=== PATIENT | male | born 1940 | race Caucasian/White ===

== ENCOUNTER 2018-10-18 18:40 | Inpatient (IN) | payer MEDICARE ==
[2018-10-18] MEDS ORDERED: Azithromycin 250 MG TAB ONE (20:17)
--- NOTE | 2018-10-18 20:30 | PDOC.FPRHP ---
- History of Present Illness Chief Complaint: SOB History of Present Illness: This is a 78 yo male with a PMH of COPD, HTN, DM2, CAD s/p stent, AAA, and BPH who presents to the ed with a cc of worsening SOB. He reports that his symptoms started 2 days ago. He reports sob with exertion and increased sputum production , with a change in consistency. He improves with rest. He denies chest pain. ED Course: Azithromycin 500 mg - Allergies/Adverse Reactions Allergies Allergy/AdvReac Type Severity Reaction Status Date / Time No Known Drug Allergies Allergy Verified 10/18/18 22:20 - Home Medications Medication Instructions Recorded Confirmed Type RX: Cilostazol 100 mg PO BID-AC 05/08/14 10/18/18 History RX: Clopidogrel Bisulfate [Plavix] 75 mg PO DAILY 05/08/14 10/18/18 History RX: Glucosamine Sulfate 750 mg PO DAILY 05/08/14 10/18/18 History RX: Ranitidine HCl 150 mg PO BID 05/08/14 10/18/18 History RX: Selenium 25 mcg PO DAILY 05/08/14 10/18/18 History RX: Sertraline HCl 100 mg PO DAILY 05/08/14 10/18/18 History RX: Valsartan/Hydrochlorothiazide 1 tablet PO HS 05/08/14 10/18/18 History [Valsartan-Hctz 320-12.5 mg Tab] Albuterol Sulfate [Ventolin HFA] 2 puff INH Q4HR PRN 10/18/18 10/18/18 History Aspirin [Aspirin Chewable] 162 mg PO HS 10/18/18 10/18/18 History Fluticasone/Salmeterol [Advair HFA 2 inh IH BID 10/18/18 10/18/18 History 230/21 Inhaler] Metoprolol Succinate [Toprol Xl] 25 mg PO BID 10/18/18 10/18/18 History Multivitamin [Daily Multiple 1 each PO DAILY 10/18/18 10/18/18 History Vitamin] [place]-3 Fatty Acids/Fish Oil [Fish 1 cap PO DAILY 10/18/18 10/18/18 History Oil 1,000 mg Capsule] RX: Allopurinol 150 mg PO HS 10/18/18 10/18/18 History RX: Amlodipine [Norvasc] 5 mg PO DAILY 10/18/18 10/18/18 History RX: Atorvastatin Calcium 10 mg PO HS 10/18/18 10/18/18 History RX: Levemir Flexpen [Levemir 21 units SC BID 10/18/18 10/18/18 History FlexPen] metFORMIN HCl 500 mg PO BID 10/18/18 10/18/18 History - History PMHx: COPD, HTN, DM2, CAD, AAA stable, BPH, obesity PSHx: cardiac stent, right cartid enarterectomy FHx: none contributory Social:40 pack year history, drinks socially denies drugs - Review of Systems General: reports: fever/chills. denies: weight/appetite/sleep changes, fatigue Eyes: denies: eye pain, vision changes Respiratory: reports: cough, congestion, shortness of breath, exercise intolerance Cardiovascular: denies: chest pain, palpitation Gastrointestinal: reports: nausea. denies: vomiting, diarrhea, constipation Skin: denies: rashes, lesions Musculoskeletal: denies: pain, tenderness Neurological: denies: numbness, syncope Psychological: denies: anxiety, depression - Vital signs BP: 177/85 HR: 94 RR: 18 Tmax: 99.0 Pox: 97% on RA Wt: 93 kg - Physical Exam Constitutional: NAD, awake, alert and oriented, well developed HEENT: normocephalic and atraumatic, MMM Neck: FROM, no JVD Chest: no-tender to palpation Heart: RRR, normal S1/S2, no murmurs/rubs/gallops Lungs: good air movement, other (mild end expiratory wheezing) Abdomen: soft, non-tender, bowel sounds present, no masses/distention Musculoskeletal: normal structure, ROM grossly normal Neurological: no focal deficit Heme/Lymphatic: no unusual bruising or bleeding Psychiatric: normal mood and affect, good judgment and insight FMR H&P: Results - Labs Lab results: Lactic Acid 2.4 mmol/L (0.5-2.2) H 10/18/18 19:53 cbc wbc 7.5 hgb 12.6 hct 37.9 mcv 98.1 plt 292 CMP na 141 k4.1 cl 104 bicarb 28 bun 31 cr 1.5 glucose 161 albumin 3.3 bili 0.5 AST 27 ALT 15 Trop neg x1 - Radiology Interpretation CT scan - chest Status: report reviewed by me (nodular mass 8.1cm x 7cm x 5.6cm, left pleural effusion, occulsion of left lower lobe bronchus) FMR H&P: A/P - Problem List (1) COPD exacerbation Current Visit: Yes Status: Acute Code(s): J44.1 - CHRONIC OBSTRUCTIVE PULMONARY DISEASE W (ACUTE) EXACERBATION (2) HTN (hypertension) Current Visit: Yes Status: Acute Code(s): I10 - ESSENTIAL (PRIMARY) HYPERTENSION (3) Type 2 diabetes mellitus Current Visit: Yes Status: Acute (4) History of heart artery stent Current Visit: Yes Status: Acute Code(s): Z95.5 - PRESENCE OF CORONARY ANGIOPLASTY IMPLANT AND GRAFT (5) CAD (coronary artery disease) Current Visit: Yes Status: Acute Code(s): I25.10 - ATHSCL HEART DISEASE OF [place] CORONARY ARTERY W/O ANG PCTRS (6) AAA (abdominal aortic aneurysm) Current Visit: Yes Status: Acute Code(s): I71.4 - ABDOMINAL AORTIC ANEURYSM , WITHOUT RUPTURE (7) BPH (benign prostatic hyperplasia) Current Visit: Yes Status: Acute Code(s): N40.0 - BENIGN PROSTATIC HYPERPLASIA WITHOUT LOWER URINRY TRACT SYMP - Plan This is a 78 yo male with a PMH of COPD, HTN, DM2, CAD s/p stent, AAA, and BPH COPD exacerbation -Admit to tele -Azithromycin in ED, changing to doxy due to potential interaction -Start steroids -Scheduled duonebs -Pending procal Pulmonary nodule -CT chest shows nodular mass 8.1cm x 7cm x 5.6cm, left pleural effusion, occulsion of left lower lobe bronchus -Consult pulmonology in the morning HTN -continue home meds DM2 -Continue home levemir, achs accuchecks, SSI CAD -Continue home meds AAA BPH -Consider adding terazosin if BP remains elevated Code: full Prophylaxis: lovenox Family: none at bedside Disposition: DC in 2-3 days FMR H&P: Upper Level - Pertinent history 78M presents for shortness of breath. This has been worsening over 2 days. Never had issues like this before. It is worst with exertion, improved with rest. Specifically denies fever, cough, sputum production, PND, orthopnea, LE edema. Social history pertinent for 40 pack year history. He has no respiratory diagnosis in past except COPD. He has no recent sick contact or long distance travel. - Pertinent findings Gen: Alert, grossly oriented HEENT: Normocephalic, moist mucosal membrane, white sclera, fair dentition Resp: CTA bilaterally, but diminished breath sound CV: RRR with no apparent m/g/r GI: Normoactive bowel, not tender to palpation, no masses palpated MSK: No edema noted in LEs Neuro: No focal deficit seen, patient converses appropriately - Plan Date/Time: 10/18/182027 I, [Stephen Sandoval], have evaluated this patient and agree with findings/plan as outlined by internal affairs commander resident. Pertinent changes/additions are listed here. 1. Lung Masses - Consider mets as possibility. At least 40 pack year history. Unlikely infection as vitals and wbc wnl. - Consult Pulm in morning - Treat symptomatically at this time to relieve dyspnea 2. COPD exacerbation - Smoking history. - Will treat with doxy, steroid, neb, O2. 3. DM2 - Stable chronic issue. - Will resume home insulin. Will hold metformin in mean time due to CT scan. Start sliding scale insulin to cover 4. HTN: - Mildly HTN at this time, but without emergency symptoms - Resume home medication 5. GERD - Stable chronic issue - Resume home medication 6. Depression - Stable chronic issue - Continue home med - Consider spiritual care consult 7. Gout - Stable Chronic issue - Continue home med
[2018-10-18 20:33] LABS: Bilirubin Negative (Negative); Blood, Urine Negative (Negative); Clarity CLEAR (Clear); Glucose, Urine (Dipstick) Negative (Negative); Leukocyte Negative (Negative); Nitrite Negative (Negative); Protein, Urine (Dipstick) Trace mg/dL (Neg-Trace)
[2018-10-18 20:34] LABS: Specific Gravity, Urine 1.053 (1.002-1.036)
[2018-10-18 21:00] LABS: Troponin I Less than 0.010 ng/mL (< 0.028)
[2018-10-18] MEDS ORDERED: Acetaminophen 325 MG TAB PO PRN (21:38)
[2018-10-18] MEDS ORDERED: Ondansetron PF 4 MG/2 ML Vial IVP PRN (21:38)
[2018-10-18] MEDS ORDERED: Ondansetron ODT 4 MG TAB SL PRN (21:38)
[2018-10-18] MEDS ORDERED: HYDROcodone/Acetaminophen 5/325 mg Tablet PO PRN ×2 (21:38)
[2018-10-18] MEDS ORDERED: PROVENTIL INHALER 6.7 G (200 INHALATIONS) INH PRN (22:24)
[2018-10-18] MEDS ORDERED: Dextrose 5% in Water 1,000 ML IV PRN (22:27)
[2018-10-18] MEDS ORDERED: Dextrose 50% Abboject 50 ML SYRINGE SLOW IVP PRN (22:27)
[2018-10-18] MEDS ORDERED: Ondansetron ODT 4 MG TAB PO PRN (22:27)
[2018-10-18] MEDS ORDERED: HumaLOG 300 UNITS/3 ML VIAL SC PRN ×2 (22:27)
[2018-10-18 22:57] VITALS: BMI 29.1
[2018-10-18] MEDS ORDERED: Doxycycline 100 MG CAP PO SCH (23:00)
[2018-10-18 23:31] LABS: Troponin I Less than 0.010 ng/mL (< 0.028)
[2018-10-18 23:54] LABS: Lactic Acid 3.1 mmol/L (0.5-2.2)
[2018-10-19 05:13] LABS: #Monocytes 0.8 thou/uL (0.11-0.59); #Neutrophils 8.6 thou/uL (1.40-6.50); %Basophils 0.4 % (0.0-1.0); %Eosinophils 0.1 % (0.0-10.0); %Lymphocytes 9.9 % (21.0-51.0); %Monocytes 7.6 % (0.0-10.0); Hemoglobin 11.9 g/dL (14.0-18.0); Mean Corpuscular HGB CONC 32.7 g/dL (32.0-36.0); Mean Platelet Volume 7.4 fL (7.4-10.4); Platelet Count 320 thou/uL (130-400); Red Blood Cell (RBC) Count 3.61 mill/uL (4.70-6.10); White Blood Cell (WBC) Count 10.5 thou/uL (4.8-10.8)
[2018-10-19 05:39] LABS: Anion Gap 14 mmol/L (10-20); BUN (Urea Nitrogen) 38 mg/dL (8.4-25.7); Calc. Creatinine Clearance 53 mL/min (70-130); Calcium 9.6 mg/dL (7.8-10.44); Carbon Dioxide 27 mmol/L (23-31); Chloride 105 mmol/L (98-107); Estimated GFR-MDRD 44; Glucose 123 mg/dL (83-110); Potassium 4.2 mmol/L (3.5-5.1); Sodium 142 mmol/L (136-145)
[2018-10-19] MEDS: Mometasone/Formoterol 120 PUFF INHALER INH SCH ×2 (07:15→19:19)
--- NOTE | 2018-10-19 07:49 | PDOC.FM ---
- Subjective Subjective: Pt feeling well this AM. continued SOB, no cough, no wheezing. no complaints at this time. no fever/chills, no nausea/vomiting, no hemoptysis - Objective MAR Reviewed: Yes Vital Signs & Weight: Vital Signs (12 hours) Temp Pulse Resp BP BP Pulse Ox 10/19/18 07:15 76 20 90 L 10/19/18 07:10 76 20 90 L 10/19/18 04:00 98.0 F 81 16 104/57 L 95 10/19/18 00:00 98.3 F 90 20 91 L 10/18/18 23:46 86 20 91 L 10/18/18 22:27 91 L 10/18/18 21:40 90 L 10/18/18 21:34 97.6 F 94 18 120/67 90 L Weight Weight 92.079 kg Result Diagrams: 10/19/18 04:15 10/19/18 04:15 Phys Exam - Physical Examination Constitutional: NAD HEENT: moist MMs, sclera anicteric Neck: supple, full ROM Respiratory: no wheezing, clear to auscultation bilateral Cardiovascular: RRR, no significant murmur Gastrointestinal: soft, non-tender Musculoskeletal: no edema, pulses present Neurological: normal sensation, moves all 4 limbs Psychiatric: normal affect, A&O x 3 Skin: no rash, normal turgor Dx/Plan (1) COPD exacerbation Code(s): J44.1 - CHRONIC OBSTRUCTIVE PULMONARY DISEASE W (ACUTE) EXACERBATION Status: Acute (2) Lung mass Code(s): R91.8 - OTHER NONSPECIFIC ABNORMAL FINDING OF LUNG FIELD Status: Acute (3) AAA (abdominal aortic aneurysm) Code(s): I71.4 - ABDOMINAL AORTIC ANEURYSM, WITHOUT RUPTURE Status: Acute (4) BPH (benign prostatic hyperplasia) Code(s): N40.0 - BENIGN PROSTATIC HYPERPLASIA WITHOUT LOWER URINRY TRACT SYMP Status: Acute (5) CAD (coronary artery disease) Code(s): I25.10 - ATHSCL HEART DISEASE OF [place] CORONARY ARTERY W/O ANG PCTRS Status: Acute (6) HTN (hypertension) Code(s): I10 - ESSENTIAL (PRIMARY) HYPERTENSION Status: Acute (7) History of heart artery stent Code(s): Z95.5 - PRESENCE OF CORONARY ANGIOPLASTY IMPLANT AND GRAFT Status: Acute (8) Type 2 diabetes mellitus Status: Acute - Plan Plan: This is a 78 yo male with a PMH of COPD, HTN, DM2, CAD s/p stent, AAA, and BPH Pulmonary mass A-CT chest in outside facility shows nodular mass 8.1cm x 7cm x 5.6cm, left pleural effusion, occulsion of left lower lobe bronchus P-Consult pulmonology COPD exacerbation A-Azithromycin in ED, changing to doxy due to potential interaction P-continue steroids -Scheduled duonebs -Pending procal HTN -continue home meds DM2 -Continue home levemir, achs accuchecks, SSI CAD -Continue home meds AAA -MD aware BPH -Consider adding terazosin if BP remains elevated Code: full Prophylaxis: lovenox Addendum - Attending - Attending Attestation Date/Time: 10/19/18 3200 I personally evaluated the patient and discussed the management with Dr. Arvizu I agree with the History, Examination, Assessment and Plan documented above with any addition or exceptions noted below- 78 yo male with h/o COPD, HTN, DM, CAD s/p stent and carotid stenosis s/o endarterectomy presented c/o progressive SOB and cough over the last week. Denies any chest pain. Denies any fever/ chills. PMH/PSH/Meds/ ALl reviewed and agree with resident's documentation. T 98.1 P82 RR20 BP 124/59 90% on 2L NC Exam repeated by me and agree with resident's findings except decreased BS in left base. Labs: WBC= 7.5, H/H=12.6/ 37.9, Mbk=412, NA= 141, K=4.1, CL= 104, CO2=28 BUN/Cr= 31/1.5, Rvdw=416. CT chest report- large left pleural effusion; nodular mass 8.1x7x5.6 cm occluding left lower lobe bronchus A/P: 1) COPD exacerbation- continue nebs, steroids. 2) Left lower lobe mass and pleural effusion- Will work on obtain images of CT scan. Consult pulmonary for assistance. 3) DM- continue insulin and sliding scale. Monitor Accuchecks.
[2018-10-19] MEDS: Cilostazol 100 MG TAB PO SCH ×2 (08:04→18:23)
[2018-10-19] MEDS: predniSONE 20 MG TAB PO SCH (08:05)
[2018-10-19] MEDS: Fish Oil 1,000 MG CAP PO SCH (08:05)
[2018-10-19] MEDS: Clopidogrel Bisulfate 75 MG TAB PO SCH (08:05)
[2018-10-19] MEDS: Doxycycline 100 MG CAP PO SCH ×2 (08:05→21:07)
[2018-10-19] MEDS: Enoxaparin Sodium 40 MG/0.4 ML SYRINGE SC SCH (08:06)
[2018-10-19] MEDS: Amlodipine 10 MG TAB PO SCH (08:06)
[2018-10-19] MEDS: Multivitamin W/ Minerals 1 TAB PO SCH (08:06)
[2018-10-19] MEDS: Famotidine 20 MG TAB PO SCH ×2 (08:06→21:07)
[2018-10-19] MEDS: Acetaminophen 325 MG TAB PO PRN (08:06)
[2018-10-19] MEDS: Insulin Glargine 21 UNITS in Pre-Filled Syringe 1 EACH SC SCH ×2 (08:07→21:06)
[2018-10-19] MEDS ORDERED: SELENIUM PO SCH (09:00)
[2018-10-19] MEDS ORDERED: INSULIN DETEMIR SC SCH (09:00)
[2018-10-19] MEDS ORDERED: GLUCOSAMINE SULFATE 750 MG PO SCH (09:00)
--- NOTE | 2018-10-19 11:15 | RAD ---
PA AND LATERAL VIEWS OF CHEST: Date: 10/19/18 HISTORY: Lung mass. FINDINGS/IMPRESSION: There is a large left pleural effusion. Right lung is clear. There are degenerative changes in the sp ine. POS: [facility]
[2018-10-19 13:59] LABS: Pleural Fluid, Protein 3.6 g/dL
[2018-10-19 14:24] LABS: BF Color Yellow; Body Fluid Source THORACENTESIS FLD; Clarity Hazy (Clear)
[2018-10-19 14:25] LABS: BF RBC Count - Manual 2153 /cumm; Tube # 3; WBC/NonHematic-Auto 472 /cumm
[2018-10-19 14:31] LABS: BF Segmented Neutrophils 3 %; Cell Count Non Hematic 51 %; Lymphocytes 46 %
--- NOTE | 2018-10-19 14:37 | RAD ---
FRONTAL RADIOGRAPH CHEST: Date: 10/19/18 COMPARISON: Prior study on same day. HISTORY: Thoracentesis. FINDINGS: The patient appears status post left thoracentesis as the left pleural effusion noted on the prior st udy performed earlier on 10/19/18 has markedly decreased in size. There is significant persistent ple ural and parenchymal opacity within the left base, nonspecific. No discrete left-sided pneumothorax i s seen. Right lung appears clear. There is atherosclerotic calcification of the aortic arch. IMPRESSION: Interval left thoracentesis with persistent nonspecific pleural and parenchymal opacity in the left l jorge base. Follow-up advised. POS: [facility]
--- NOTE | 2018-10-19 20:43 | CON ---
DATE OF CONSULTATION: HISTORY OF PRESENT ILLNESS: Jamal Gustafson is a 78-year-old gentleman who was sent from the ER in [place] for evaluation of shortness of breath and abnormal x-ray and CT. He apparently has been seeing a doctor at [place]; apparently, the clinic moved to [place]. However, he was seen there for cough and shortness of breath. He underwent a CAT scan which showed a lung mass, pleural effusion, and lung nodule. We were unfortunately unable to access the CT; none was sent from [place]. Chest x-ray, however, showed a massive left pleural effusion. Smoked a pack a day for most of his life without prior history of TB, pneumonia, or bronchial asthma. He had an x-ray taken about a week ago. He is still to hear from the doctor who ordered the x-ray. PAST MEDICAL HISTORY: Pertinent for hypertension, coronary artery disease, anxiety, depression, hypertension, and COPD. MEDICATIONS: His list of medicines from home includes; 1. Albuterol HFA. 2. Norvasc 5. 3. Aspirin 162. 4. Plavix 75. 5. Advair 230 twice a day. 6. Toprol-XL 25 twice a day. 7. Insulin 21 units twice a day. 8. Ranitidine 150. 9. . 10. Zoloft 100. 11. Metformin 500 twice a day. 12. Valsartan one tablet at nighttime. This patient says he has lost some weight. PAST SURGICAL HISTORY: Stents many years ago. Sees a mexican food cook out of [place], right carotid surgery. SOCIAL HISTORY: Tobacco is noted. Alcohol minimal. FAMILY HISTORY: Unremarkable. REVIEW OF SYSTEMS: Ten-point negative. PHYSICAL EXAMINATION: VITAL SIGNS: Sats are 90 on 2 L, respiratory rate 20, temperature 98, and blood pressure 140/64. CHEST: Decreased breath sounds, left lung entire. CARDIAC: Normal S1, S2. No gallops. ABDOMEN: No masses. LABORATORY DATA: White count 10,000; hemoglobin 11, hematocrit 36, and platelet count 320. Creatinine 1.5. IMPRESSION: 1. Massive left pleural effusion. 2. CAT scan showing lung mass, which we are unable to access. 3. Renal failure. 4. Coronary artery disease. 5. Hypertension. 6. Diabetes. 7. Depression. PLAN: Thoracentesis will be performed. Further recommendations as above. In the meantime, I agree with present treatment, neb treatments, and supportive care. This is a consultation note, 70 minutes, of which 50% in direct patient care. PROCEDURE NOTE: PROCEDURE PERFORMED: Thoracentesis. DESCRIPTION OF PROCEDURE: After informed consent, the patient sitting upright in the bed, the left posterior thorax was cleaned with chlorhexidine. 1% Xylocaine was infiltrated into left 9th intercostal space in the midscapular area, and 20 mL of turbid sanguinous dark fluid were removed. After using an 8-[place] catheter, a total of 2500 mL was removed without any difficulty. The patient tolerated the procedure well. Fluid will be sent for appropriate studies including cytology and culture. Job ID: [id number]
[2018-10-19] MEDS: Allopurinol 300 MG TAB PO SCH (21:07)
[2018-10-19] MEDS: Atorvastatin Calcium 10 MG TAB PO SCH (21:07)
[2018-10-19] MEDS: Hydrochlorothiazide 25 MG TAB PO SCH (21:07)
[2018-10-19] MEDS: Valsartan 80 MG TAB PO SCH (21:08)
[2018-10-20] MEDS: Mometasone/Formoterol 120 PUFF INHALER INH SCH ×2 (08:03→19:42)
[2018-10-20] MEDS: Insulin Glargine 21 UNITS in Pre-Filled Syringe 1 EACH SC SCH ×2 (09:03→20:46)
[2018-10-20] MEDS: Fish Oil 1,000 MG CAP PO SCH (09:04)
[2018-10-20] MEDS: Cilostazol 100 MG TAB PO SCH ×2 (09:04→17:25)
[2018-10-20] MEDS: Clopidogrel Bisulfate 75 MG TAB PO SCH (09:04)
[2018-10-20] MEDS: predniSONE 20 MG TAB PO SCH (09:04)
[2018-10-20] MEDS: Enoxaparin Sodium 40 MG/0.4 ML SYRINGE SC SCH (09:04)
[2018-10-20 09:05] LABS: ALT (SGPT) 13 U/L (8-55); AST (SGOT) 29 U/L (5-34); Albumin 3.2 g/dL (3.4-4.8); Alkaline Phosphatase 90 U/L (40-150); Anion Gap 14 mmol/L (10-20); BUN (Urea Nitrogen) 45 mg/dL (8.4-25.7); Bilirubin, Total 0.2 mg/dL (0.2-1.2); Calc. Creatinine Clearance 48 mL/min (70-130); Calcium 9.8 mg/dL (7.8-10.44); Carbon Dioxide 27 mmol/L (23-31); Chloride 104 mmol/L (98-107); Estimated GFR-MDRD 41; Glucose 86 mg/dL (83-110); LDH 523 U/L (125-220); Potassium 4.1 mmol/L (3.5-5.1); Protein, Total 6.2 g/dL (5.8-8.1); Sodium 141 mmol/L (136-145)
[2018-10-20] MEDS: Amlodipine 10 MG TAB PO SCH (09:05)
[2018-10-20] MEDS: metFORMIN 500 MG TAB PO SCH ×2 (09:05→20:49)
[2018-10-20] MEDS: Famotidine 20 MG TAB PO SCH ×2 (09:05→20:50)
[2018-10-20] MEDS: Doxycycline 100 MG CAP PO SCH ×2 (09:06→20:46)
[2018-10-20] MEDS: Multivitamin W/ Minerals 1 TAB PO SCH (09:06)
--- NOTE | 2018-10-20 10:02 | PDOC.FM ---
- Subjective Subjective: Pt feeling well this AM. SOB is stable. No complaints at this time. no fever/chills, no hemoptysis, no cough - Objective MAR Reviewed: Yes Vital Signs & Weight: Vital Signs (12 hours) Temp Pulse Resp BP BP Pulse Ox 10/20/18 09:05 75 113/56 L 10/20/18 08:01 72 16 90 L 10/20/18 04:00 97.6 F 61 18 128/60 93 L 10/20/18 00:31 78 16 92 L Weight Weight 87.634 kg I&O: 10/19/18 10/20/18 10/21/18 06:59 06:59 06:59 Intake Total 450 2594 Output Total 1137 Balance 450 1457 Result Diagrams: 10/19/18 04:15 10/20/18 08:09 Phys Exam - Physical Examination Constitutional: NAD HEENT: moist MMs, oral pharynx no lesions Neck: no nodes, no JVD Respiratory: no rhonchi diffuse expiratory wheezing bilaterally Cardiovascular: RRR, no significant murmur Gastrointestinal: soft, non-tender Musculoskeletal: no edema, pulses present Neurological: non-focal, normal sensation Psychiatric: normal affect, A&O x 3 Skin: no rash, normal turgor Dx/Plan (1) COPD exacerbation Code(s): J44.1 - CHRONIC OBSTRUCTIVE PULMONARY DISEASE W (ACUTE) EXACERBATION Status: Acute (2) Lung mass Code(s): R91.8 - OTHER NONSPECIFIC ABNORMAL FINDING OF LUNG FIELD Status: Acute (3) AAA (abdominal aortic aneurysm) Code(s): I71.4 - ABDOMINAL AORTIC ANEURYSM, WITHOUT RUPTURE Status: Acute (4) BPH (benign prostatic hyperplasia) Code(s): N40.0 - BENIGN PROSTATIC HYPERPLASIA WITHOUT LOWER URINRY TRACT SYMP Status: Acute (5) CAD (coronary artery disease) Code(s): I25.10 - ATHSCL HEART DISEASE OF [place] CORONARY ARTERY W/O ANG PCTRS Status: Acute (6) HTN (hypertension) Code(s): I10 - ESSENTIAL (PRIMARY) HYPERTENSION Status: Acute (7) History of heart artery stent Code(s): Z95.5 - PRESENCE OF CORONARY ANGIOPLASTY IMPLANT AND GRAFT Status: Acute (8) Type 2 diabetes mellitus Status: Acute - Plan Plan: This is a 78 yo male with a PMH of COPD, HTN, DM2, CAD s/p stent, AAA, and BPH Pulmonary mass A-CT chest in outside facility shows nodular mass 8.1cm x 7cm x 5.6cm, left pleural effusion, occulsion of left lower lobe bronchus. Pulm consulted and pt is s/p thoracentesis. Outside facility is unable to provide CT images. P-f/u pulmonology recs - awaiting more labs to calculate nature of effusion -will order chest CT -O2 prn COPD exacerbation A-Azithromycin in ED, changing to doxy due to potential interaction P-continue steroids -Scheduled duonebs HTN -continue home meds DM2 -Continue home levemir, achs accuchecks, SSI CAD -Continue home meds AAA -MD aware BPH -md aware Code: full Prophylaxis: lovenox Addendum - Attending - Attending Attestation Date/Time: 10/20/18 6100 I personally evaluated the patient and discussed the management with Dr. Arvizu I agree with the History, Examination, Assessment and Plan documented above with any addition or exceptions noted below - Patient without complaints. No further SOB. Afebrile VSS A/P: 1) COPD- continue steroids, duonebs, and abx. 2) Lung mass with pleaural effusion- pulmonary consulted and appreciate assistance. S/p thoracentesis yesterday with 2.5 L drained and sent for studies. Unable to obtain CT films for review; repeat CT scan ordered. Further plans after review of this. 3) DM- BG stable; continue current meds. 4) SOCORRO- continue to monitor
--- NOTE | 2018-10-20 12:50 | PRG ---
DATE OF SERVICE: SUBJECTIVE: This morning, he is better. He is less short of breath, less cough. OBJECTIVE: VITAL SIGNS: Sats are 90 on 2L, blood pressure 130/56, respirations 18. CHEST: Decreased breath sounds, left without any wheezing. CARDIAC: Normal S1 and S2. No gallops. Abdomen: No masses. LABORATORY DATA: His lab shows creatinine 1.6. IMPRESSION: 1. Left bloody effusion, probably bronchogenic carcinoma. 2. Abdominal CT showed right lung mass. 3. Chronic obstructive pulmonary disease. 4. Azotemia. 5. Coronary artery disease. Pulmonary vieira, await results of the pleural effusion. Disposition thereafter. Job ID: [id number]
--- NOTE | 2018-10-20 14:18 | CT ---
CT CHEST WITH IV CONTRAST: Date: 10/20/18 HISTORY: Lung mass. FINDINGS: There is mediastinal and left hilar lymphadenopathy. There are vascular calcifications without evide nce of aneurysmal dilatation of the thoracic aorta. No pericardial or right-sided pleural effusion is seen. Moderate size left pleural effusion is present. There are masses in the left paracardiac region, the largest measuring up to 6.5 cm in AP dimension. There is a pleural surface of the left diaphragm. The right lung is unremarkable. Upper abdominal tomograms are grossly unremarkable. IMPRESSION: Findings are suspicious for malignancy/metastatic disease. CT guided biopsy of a left lower chest mass is recommended. A PET scan prior to biopsy would be beneficial. POS: [facility]
[2018-10-20] MEDS ORDERED: Bisacodyl 5 MG TAB PO PRN (17:25)
[2018-10-20] MEDS: Docusate 100 MG CAP PO PRN ×2 (17:55→22:25)
[2018-10-20] MEDS: Hydrochlorothiazide 25 MG TAB PO SCH (20:47)
[2018-10-20] MEDS: Valsartan 80 MG TAB PO SCH (20:47)
[2018-10-20] MEDS: Allopurinol 300 MG TAB PO SCH (20:48)
[2018-10-20] MEDS: Atorvastatin Calcium 10 MG TAB PO SCH (20:50)
[2018-10-20] MEDS: Acetaminophen 325 MG TAB PO PRN (22:25)
[2018-10-21] MEDS: Mometasone/Formoterol 120 PUFF INHALER INH SCH (05:58)
--- NOTE | 2018-10-21 08:18 | PDOC.FM ---
- Subjective Subjective: Pt feeling well this AM. Reports good ambulation and only complaints of no BM since admission denies sob and hemoptysis, no cp no palpitations - Objective MAR Reviewed: Yes Vital Signs & Weight: Vital Signs (12 hours) Temp Pulse Resp BP BP Pulse Ox 10/21/18 07:32 97.6 F 70 18 115/58 L 96 10/21/18 05:58 79 16 88 L 10/21/18 05:56 79 16 88 L 10/21/18 04:03 97.0 F L 63 20 102/53 L 92 L 10/21/18 00:06 80 16 92 L 10/20/18 22:40 98.0 F 75 18 107/54 L 94 L Weight Weight 88.904 kg I&O: 10/20/18 10/21/18 10/22/18 06:59 06:59 06:59 Intake Total 2594 670 Output Total 1137 120 Balance 1457 550 Result Diagrams: 10/19/18 04:15 10/20/18 08:09 Phys Exam - Physical Examination Constitutional: NAD HEENT: moist MMs, sclera anicteric Neck: no JVD, supple Respiratory: no wheezing, no rales Decreased breath sounds in L mid lung Cardiovascular: RRR, no significant murmur Gastrointestinal: soft, non-tender Musculoskeletal: pulses present Neurological: normal sensation, moves all 4 limbs Psychiatric: normal affect, A&O x 3 Skin: no rash, normal turgor Dx/Plan (1) COPD exacerbation Code(s): J44.1 - CHRONIC OBSTRUCTIVE PULMONARY DISEASE W (ACUTE) EXACERBATION Status: Acute (2) Lung mass Code(s): R91.8 - OTHER NONSPECIFIC ABNORMAL FINDING OF LUNG FIELD Status: Acute (3) AAA (abdominal aortic aneurysm) Code(s): I71.4 - ABDOMINAL AORTIC ANEURYSM, WITHOUT RUPTURE Status: Acute (4) BPH (benign prostatic hyperplasia) Code(s): N40.0 - BENIGN PROSTATIC HYPERPLASIA WITHOUT LOWER URINRY TRACT SYMP Status: Acute (5) CAD (coronary artery disease) Code(s): I25.10 - ATHSCL HEART DISEASE OF [place] CORONARY ARTERY W/O ANG PCTRS Status: Acute (6) HTN (hypertension) Code(s): I10 - ESSENTIAL (PRIMARY) HYPERTENSION Status: Acute (7) History of heart artery stent Code(s): Z95.5 - PRESENCE OF CORONARY ANGIOPLASTY IMPLANT AND GRAFT Status: Acute (8) Type 2 diabetes mellitus Status: Acute - Plan Plan: This is a 78 yo male with a PMH of COPD, HTN, DM2, CAD s/p stent, AAA, and BPH Pulmonary mass A-Lights criteria shows exudative effusion. CT chest in outside facility shows nodular mass 8.1cm x 7cm x 5.6cm, left pleural effusion, occulsion of left lower lobe bronchus. Pulm consulted and pt is s/p thoracentesis. Outside facility is unable to provide CT images. CT at our hospital shows mass measuring 6.5 cm at largest diameter. Radiology recommends PET scan followed by a CT guided biopsy. P-f/u pulmonology recs -will consider PET scan -O2 prn COPD exacerbation A-Azithromycin in ED, changed to doxy due to potential interaction P-continue doxy -continue steroids -Scheduled duonebs HTN -continue home meds DM2 -Continue home levemir, achs accuchecks, SSI CAD -Continue home meds AAA -MD aware BPH -md aware Code: full Prophylaxis: lovenox Addendum - Attending - Attending Attestation Date/Time: 10/21/18 1049 I personally evaluated the patient and discussed the management with Dr. Arvizu I agree with the History, Examination, Assessment and Plan documented above with any addition or exceptions noted below- Patient without complaints. Denies any SOB. Ambulating without difficulty. Afebrile VSS. A/P: 1) COPD exacerbation - improved. 2) Lung mass suspect malignancy- cytology from thoracentesis pending. Discussed with pulmonary who recommends further workup as outpatient pending cytology result. 3) Hypoxia- O2 sat = 87% while walking- will make arrangements for home O2 and d/c home today.
[2018-10-21] MEDS: Fish Oil 1,000 MG CAP PO SCH (08:59)
[2018-10-21] MEDS: Multivitamin W/ Minerals 1 TAB PO SCH (08:59)
[2018-10-21] MEDS: Cilostazol 100 MG TAB PO SCH (08:59)
[2018-10-21] MEDS: Doxycycline 100 MG CAP PO SCH (08:59)
[2018-10-21] MEDS: Clopidogrel Bisulfate 75 MG TAB PO SCH (09:00)
[2018-10-21] MEDS: Famotidine 20 MG TAB PO SCH (09:00)
[2018-10-21] MEDS: metFORMIN 500 MG TAB PO SCH (09:00)
[2018-10-21] MEDS ORDERED: Senokot 8.6 MG TAB PO SCH (09:00)
[2018-10-21] MEDS: predniSONE 20 MG TAB PO SCH (09:00)
[2018-10-21] MEDS ORDERED: Polyethylene Glycol 3350 17 GM Packet PO SCH (09:00)
[2018-10-21] MEDS: Amlodipine 10 MG TAB PO SCH (09:00)
[2018-10-21] MEDS: Enoxaparin Sodium 40 MG/0.4 ML SYRINGE SC SCH (09:01)
[2018-10-21] MEDS: Insulin Glargine 21 UNITS in Pre-Filled Syringe 1 EACH SC SCH (09:01)
[2018-10-21 12:36] VITALS: BP 124/60; TEMP 98.6
--- NOTE | 2018-10-21 14:26 | PQF ---
CLINICAL DOCUMENTATION IMPROVEMENT CLARIFICATION FORM: ICD-10 Updated PLEASE DO AN ADDENDUM TO THE PROGRESS NOTE WITH ANY DOCUMENTATION UPDATES OR ADDITIONS AND CARRY THROUGH TO DC SUMMARY. THANK YOU. DATE: 10/21/18 ATTN: Dr. Arvizu/ Attending Dr. Sousa Please exercise your independent, professional judgment in responding to the clarification form. Clinical indicators are provided on the bottom of this form for your review Please check appropriate box(s): [ ] Acute Respiratory Failure: [ ] with Hypoxia [ ] with Hypercapnia [ ] Acute On Chronic Respiratory Failure: [ ] with Hypoxia [ ] with Hypercapnia [ ] Acute Respiratory Failure due to: [ ] Chronic Respiratory Failure only [ ] with Hypoxia [ ] with Hypercapnia [ ] Other diagnosis [ ] Unable to determine In addition, please specify: Present on Admission (POA): [ ] Yes [ ] No [ ] Unable to determine For continuity of documentation, please document condition throughout progress notes and discharge summary. Thank You. CLINICAL INDICATORS - SIGNS / SYMPTOMS / LABS H&P 10/19: Presents to the ED with a cc of worsening SOB Resp. Assessment 10/19: O2 Sat 89 RA O2 Sat 90 NC 2L Oxygen flow rate PULMONOLOGY CONSULT 10/19: Sats are 90 on 2 L, resp. rate 20 Massive left pleural effusion PN 10/21 (Merry): Hypoxia- O2 sat = 87% while walking - will make arrangements for home O2 RISKS: H&P 10/18: PMHx: COPD, HTN, DM2, CAD, Obesity. Lung Masses. COPD exacerbation. TREATMENT: 10/18 Order: Resp: O2 to keep sats 88% prn 10/18: Order Duoneb q6 hrs PULMONOLOGY CONSULT 10/19: Thoracentesis ] Thank you, Marissa (This form is maintained as a part of the permanent medical record) 2014 [employer]. All Rights Reserved Marissa Scales RN, BSN [email or web address] Office: [phone] [facility]
--- NOTE | 2018-10-22 17:53 | DIS ---
DATE OF ADMISSION: 10/18/2018 DATE OF DISCHARGE: 10/21/2018 RESIDENT: Jared Arvizu MD. DISCHARGE ATTENDING: Carly Sousa MD. CONSULTS: Pulmonology, Dr. Julio César Tsang. PRIMARY DIAGNOSES: Acute respiratory distress secondary to lung mass and chronic obstructive pulmonary disease exacerbation. SECONDARY DIAGNOSES: Hypertension, hyperlipidemia, and diabetes mellitus. DISCHARGE MEDICATIONS: 1. Selenium 50 mcg 1/2 tablet p.o. daily. 2. Sertraline 100 mg p.o. daily. 3. Clopidogrel 75 mg p.o. daily. 4. Cilostazol 100 mg p.o. b.i.d. 5. Ranitidine 150 mg p.o. b.i.d. 6. Valsartan-hydrochlorothiazide 320-12.5 mg tablet, one tablet p.o. at bedtime. 7. Glucosamine sulfate 750 mg p.o. daily. 8. Albuterol sulfate two puffs inhaled q.4 hours p.r.n. 9. Advair 2 inhales IH b.i.d. 10. Aspirin 162 mg p.o. at bedtime. 11. Allopurinol 150 mg p.o. at bedtime. 12. Metformin 500 mg p.o. b.i.d. 13. Atorvastatin 10 mg p.o. at bedtime. 14. Fish oil 100 mg p.o. daily. 15. Metoprolol succinate 25 mg p.o. b.i.d. 16. Multivitamin one each p.o. daily. 17. Levemir 21 units SC b.i.d. 18. Amlodipine 5 mg p.o. daily. 19. Acetaminophen 650 mg p.o. q.4 hours p.r.n. 20. Dulcolax 10 mg p.o. daily p.r.n. 21. Colace 100 mg p.o. b.i.d. p.r.n. 22. Doxycycline 100 mg p.o. b.i.d. for five days. 23. Prednisone 40 mg p.o. daily five tablets. Discontinued medications, none. HISTORY OF PRESENT ILLNESS/HOSPITAL COURSE: This is a 78-year-old male, who presented to the hospital with complaint of shortness of breath. The patient was found to be in respiratory distress, requiring more oxygen, and was admitted for evaluation of possible lung mass. On presentation, the patient had CT report from outside ER, which showed a lung mass on the left measuring 8.1 x 7 x 5.6 cm. The patient also had pleural effusion. The patient was also diagnosed with COPD exacerbation and treated with prednisone, DuoNebs, and doxycycline as the patient had change in sputum. Throughout hospital stay, the patient's pulmonary status generally improved and the patient was eventually able to go off oxygen and did not require oxygen on ambulation test. Regarding the lung mass, Pulmonology was consulted and did a thoracentesis. A CT scan was repeated as we could not ascertain the images from outside ER, which confirmed the presence of a mass suspicious for cancer. Given the patient had a long history of smoking. Once the patient was deemed stable and outpatient arrangements were made for followup with Pulmonology to follow up on pathology of paracentesis, the patient was discharged. DISPOSITION: Stable. LOCATION: Home. DIET: Heart healthy, diabetic. ACTIVITY: As tolerated. Follow up with Dr. Tsang in seven days and primary care physician Dr. Joanie Blanc in seven days. Job ID: [id number]
--- NOTE | 2018-10-25 15:36 | EKG ---
Test Reason : SOB Blood Pressure : / mmHG Vent. Rate : 094 BPM Atrial Rate : 093 BPM P-R Int : 000 ms QRS Dur : 096 ms QT Int : 348 ms P-R-T Axes : 000 008 238 degrees QTc Int : 435 ms Sinus rhythm Nonspecific ST and T wave abnormality Abnormal ECG Confirmed by JAVIER SHEPARD ([id number]), order editor CRISTHIAN HEATH ([id number]) on 10/25/2018 3:36:02 PM Referred By: DEVYN Confirmed By:JAVIER SHEPARD
== END 2018-10-21 15:22 | disposition home or self-care (01) | DRG 191 ==
LOC: ERS 18:40 → 2NO 19:40
PROVIDERS: ADMIT Family Medicine; ATTEND Family Medicine
PROC: 0W9B3ZX Drainage of Left Pleural Cavity, Percutaneous Approach, Diagnostic (ICD-10-PCS; principal; 2018-10-19)
DX: J44.1 Chronic obstructive pulmonary disease with (acute) exacerbation (principal); N17.9 Acute kidney failure, unspecified; J90 Pleural effusion, not elsewhere classified; C34.92 Malignant neoplasm of unspecified part of left bronchus or lung; I10 Essential (primary) hypertension; E11.9 Type 2 diabetes mellitus without complications; I25.10 Atherosclerotic heart disease of native coronary artery without angina pectoris; I71.4 Abdominal aortic aneurysm, without rupture; R91.8 Other nonspecific abnormal finding of lung field; N40.0 Benign prostatic hyperplasia without lower urinary tract symptoms; M10.9 Gout, unspecified; E66.9 Obesity, unspecified; F32.9 Major depressive disorder, single episode, unspecified; F41.9 Anxiety disorder, unspecified; Z95.5 Presence of coronary angioplasty implant and graft; Z87.891 Personal history of nicotine dependence; Z79.02 Long term (current) use of antithrombotics/antiplatelets; Z79.82 Long term (current) use of aspirin; Z79.4 Long term (current) use of insulin
CPT/HCPCS: 36415; 36416; 71045; 71046; 71260; 80048; 80053; 81003; 82150; 82945; 83605; 83615; 83986; 84145; 84157; 84478; 84484; 85025; 85060; 87070; 87116; 87205; 87206; 88112; 88305; 88313; 88341; 88342; 89051; 93005; 94640; 99285; J1642; J1650; J7506; J7620

== ENCOUNTER 2018-11-03 16:21 | Emergency (ER) | payer MEDICARE ==
--- NOTE | 2018-11-03 17:09 | RAD ---
CHEST TWO VIEWS: INDICATIONS: Dyspnea. COMPARISON: 10/19/2018 FINDINGS: There is a large left effusion. The right lung is grossly clear. The cardiac silhouette is enlarged , although predominantly obscured by the left effusion. There is added density at the left paramedia stinal region, some of which is superimposed upon a calcified aorta. There are osseous degenerative changes. IMPRESSION: 1. Large effusion in the left hemithorax. 2. Superimposed rounded density of the left paramediastinal region, inseparable from the density rel ated to pleural fluid and overlying the calcific aortic knob. Recommend follow-up imaging upon resolution of pleural fluid, in order to further characterize. CODE T POS: [facility]
[2018-11-03 17:13] LABS: #Basophils 0.1 thou/uL (0.0-0.2); #Eosinphils 0.2 thou/uL (0.0-0.7); #Lymphocytes 1.5 thou/uL (1.20-3.40); #Neutrophils 9.6 thou/uL (1.40-6.50); %Basophils 0.6 % (0.0-1.0); %Eosinophils 1.5 % (0.0-10.0); %Lymphocytes 11.9 % (21.0-51.0); %Monocytes 8.3 % (0.0-10.0); %Neutrophils 77.7 % (42.0-75.0); Hemoglobin 13.2 g/dL (14.0-18.0); Mean Corpuscular HGB CONC 33.1 g/dL (32.0-36.0); Mean Corpuscular Hemoglobin 32.9 pg (27.0-31.0); Mean Corpuscular Volume 99.4 fL (78.0-98.0); Mean Platelet Volume 7.9 fL (7.4-10.4); Platelet Count 233 thou/uL (130-400); Red Blood Cell (RBC) Count 4.03 mill/uL (4.70-6.10); White Blood Cell (WBC) Count 12.3 thou/uL (4.8-10.8)
[2018-11-03 17:24] LABS: PTT 35.7 SEC (22.9-36.1); Prothrombin Time 13.8 SEC (12.0-14.7)
[2018-11-03 17:26] LABS: D-Dimer Test 2.08 *mcg/mL (0.27-0.43)
[2018-11-03 17:32] LABS: ALT (SGPT) 13 U/L (8-55); AST (SGOT) 34 U/L (5-34); Albumin 3.4 g/dL (3.4-4.8); Alkaline Phosphatase 108 U/L (40-150); Anion Gap 13 mmol/L (10-20); BUN (Urea Nitrogen) 35 mg/dL (8.4-25.7); Bilirubin, Total 0.3 mg/dL (0.2-1.2); CK (CPK) 48 U/L (30-200); Calc. Creatinine Clearance 0 mL/min (70-130); Calcium 9.7 mg/dL (7.8-10.44); Carbon Dioxide 24 mmol/L (23-31); Chloride 109 mmol/L (98-107); Estimated GFR-MDRD 54; Globulin 3.5 g/dL (2.4-3.5); Glucose 117 mg/dL (83-110); Potassium 4.3 mmol/L (3.5-5.1); Protein, Total 6.9 g/dL (5.8-8.1); Sodium 142 mmol/L (136-145)
[2018-11-03 17:55] LABS: CKMB 2.1 ng/mL (0-6.6)
[2018-11-03] MEDS ORDERED: Morphine 4 MG/ML VIAL ONE (18:37)
--- NOTE | 2018-11-03 18:45 | RAD ---
CHEST FRONTAL VIEW: CLINICAL HISTORY: Status post thoracentesis. COMPARISON: Exam from earlier same day. FINDINGS: Status post left thoracentesis. There is very slight reduced volume of the large left pleural effusi on, compared to the exam from earlier on the same day. The rounded density at the left paramediastin al region, overlying the calcified aorta, is again demonstrated. The right lung is grossly stable. There is no significant post procedure pneumothorax seen. IMPRESSION: Status post left thoracentesis without a significant post procedural pneumothorax visualized. There remains a large volume left pleural effusion and an adjacent rounded density of the left paramediasti nal region. POS: [facility]
[2018-11-03 20:15] LABS: Troponin I 0.052 ng/mL (< 0.028)
== END 2018-11-03 20:58 | disposition home or self-care (01) ==
LOC: ERS 16:21
DX: J90 Pleural effusion, not elsewhere classified (principal); C34.90 Malignant neoplasm of unspecified part of unspecified bronchus or lung; E11.9 Type 2 diabetes mellitus without complications; I10 Essential (primary) hypertension; J44.9 Chronic obstructive pulmonary disease, unspecified; M10.9 Gout, unspecified; E78.00 Pure hypercholesterolemia, unspecified; F17.210 Nicotine dependence, cigarettes, uncomplicated; Z79.899 Other long term (current) drug therapy; Z79.84 Long term (current) use of oral hypoglycemic drugs; Z79.82 Long term (current) use of aspirin
CPT/HCPCS: 32555; 36415; 71045; 71046; 80053; 82550; 82553; 84484; 85025; 85379; 85610; 85730; 87804; 93005; 94760; 96374; J2270

== ENCOUNTER 2018-11-05 13:52 | Outpatient (CLI) | payer MEDICARE ==
--- NOTE | 2018-11-05 16:30 | PET ---
NUCLEAR MEDICINE FDG PET CT: (Positron Emission Tomography) DATE: 11/05/2018. HISTORY: A 78-year-old male with left lower lobe lung cancer, initial staging. COMPARISON: No prior PET scans available. There is a chest CT with contrast of 10/20/2018. CT abdomen and pelvi s of 01/21/2018. TECHNIQUE: IV injection F-18 Fluorodeoxyglucose (FDG) dose: 14 mCi. PET and attenuation-correction CT performed from skull base to proximal thighs. QCLR used for SUV. FINDINGS: SUV (standard uptake value) numbers given are maximum SUV's: Again noted is the approximately 4 cm infrarenal abdominal aortic aneurysm. Bilateral hypermetabolic malignant cervical lymphadenopathy (when patient's arms are elevated as for this PET CT scan, the landmarks used to distinguish the levels of lymph nodes changes, and therefore, the lymph node level designation may be different on a dedicated neck CT scan where the patient's ar ms are adducted) right level 3 and 4 conglomeration of lymph nodes with SUV 6.8. Contralateral left level 3 and/or 4 lymph nodes with SUV 5.3. Large number of significantly enlarged mediastinal lymph nodes bilaterally. For example, on the righ t, conglomeration of numerous right paratracheal lymph nodes with SUV of 9.2. Subcarinal lymphadenopathy with SUV of 4.3. Large confluent left lower lobe pulmonary mass contiguous with and inseparable from left hilar mass, with SUV of 9.8. Multiple separate foci of left pleural masses representing left pleural metastases. The largest is in a left paracardial location with SUV of 11.3. Adjacent, contiguous region of lef t anterolateral pleural mass with SUV 12.5. Broad contiguous left lateral and posterolateral pleural masses with SUV 8.5. Posteromedial pleural masses with SUV 9.5. Left diaphragmatic pleural mass wi th SUV of 7.1 Several left upper paraaortic retroperitoneal enlarged lymph nodes close to the origin of left renal artery. One of these, measuring 2.5 x 2 cm has SUV of 6.7. These were not present on the 01/21/2018 CT of the abdomen and pelvis. No evidence of metastatic disease involving the liver, spleen, or pancreas. A large number of sigmoid colonic diverticula. No definitive evidence of skeletal metastasis. Right common iliac artery stent noted. IMPRESSION: 1. Large left lower lobe primary lung cancer. 2. Extensive, somewhat severe left pleural metastasis, plus malignant left pleural effusion. 3. Bilateral cervical malignant metastatic lymphadenopathy, including supraclavicular. 4. Moderately severe bilateral mediastinal malignant lymphadenopathy. 5. Left paraaortic upper retroperitoneal lymphadenopathy. 6. Infrarenal abdominal aortic fusiform aneurysm. 7. Right common iliac artery stent. THIAGO Graham POS: [facility]
== END 2018-11-05 13:53 | disposition home or self-care (01) ==
LOC: PET 13:52
PROVIDERS: ATTEND Internal Medicine Hematology & Oncology
DX: C34.32 Malignant neoplasm of lower lobe, left bronchus or lung (principal); C78.2 Secondary malignant neoplasm of pleura; J90 Pleural effusion, not elsewhere classified; R59.0 Localized enlarged lymph nodes; I71.4 Abdominal aortic aneurysm, without rupture; Z95.820 Peripheral vascular angioplasty status with implants and grafts
CPT/HCPCS: 78815; A9552

== ENCOUNTER 2018-11-07 11:42 | Outpatient (CLI) | payer MEDICARE ==
--- NOTE | 2018-11-07 14:56 | MRI ---
MRI BRAIN WITH AND WITHOUT CONTRAST: DATE: 11/07/18 HISTORY: 78-year-old male with metastatic lung cancer. Rule out brain metastasis. COMPARISON: None. TECHNIQUE: Multiple sequences obtained in axial, sagittal, and coronal planes; pre and post IV injection of gado linium-based contrast agent: 20 mL MultiHance. FINDINGS: Incidentally, there is an approximately 0.5 x 1 x 1 cm intrinsically T1 hyperintense fatty extra-axia l mass located at midline at basal cistern (the signal completely suppresses on the fat saturation im ages) anterior to the upper portion of the basilar artery and directly posterior to the infundibular pituitary stalk, consistent with either a dermoid or small lipoma. There is no abnormal intra-axial e nhancement to indicate intracranial metastasis. There is a small old left occipital cortical infarcti on. There are moderate chronic ischemic white matter changes of the andrews radiata and centrum semiov elissa. There is a very small left upper frontal cortical infarction in the left middle frontal gyrus. T here is mild to moderate ventriculomegaly involving the lateral ventricles. There is absence of the s eptum pellucidum. Corpus callosum is thin, but fully developed. No mass effect, midline shift, or ext ra-axial fluid collection. Difficult to evaluate for restricted diffusion because of magnetic suscept ibility blowout artifact, probably due to ferromagnetic dental work. IMPRESSION: 1. No evidence of intracranial metastasis. 2. No acute intracranial findings. 3. 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 4. Small, old cortical infarctions in left occipital lobe (left posterior cerebral artery territory) and upper left frontal lobe (left middle cerebral artery territory). 5. Moderate chronic ischemic white matter changes. 6. Incidental finding of a small, approximately 1 cm, intracranial lipoma versus dermoid in a basal cistern. THIAGO Graham POS: [facility]
== END 2018-11-07 11:43 | disposition home or self-care (01) ==
LOC: MRI 11:42
PROVIDERS: ATTEND Internal Medicine Hematology & Oncology
DX: C34.12 Malignant neoplasm of upper lobe, left bronchus or lung (principal); G93.89 Other specified disorders of brain; Z86.73 Personal history of transient ischemic attack (TIA), and cerebral infarction without residual deficits
CPT/HCPCS: 70553; 71046; 80048; 85025; 93005; 93010

== ENCOUNTER 2018-11-07 13:15 | Outpatient (CLI) | payer MEDICARE ==
--- NOTE | 2018-11-07 14:45 | RAD ---
TWO VIEW CHEST: Comparison: 11-03-18 Indication: Pre-operative evaluation. FINDINGS: Re-demonstration of a large left effusion with adjacent mass like density. Right lung is stable. Ther e remains partial obscuration of the cardiomediastinal silhouette. IMPRESSION: Persistent large left effusion with adjacent mass-like density. POS: [facility]
[2018-11-07 16:34] LABS: #Lymphocytes 1.2 thou/uL (1.20-3.40); #Monocytes 0.3 thou/uL (0.11-0.59); #Neutrophils 7.2 thou/uL (1.40-6.50); %Basophils 0.2 % (0.0-1.0); %Eosinophils 0.5 % (0.0-10.0); %Lymphocytes 13.8 % (21.0-51.0); %Monocytes 2.9 % (0.0-10.0); %Neutrophils 82.6 % (42.0-75.0); Hemoglobin 11.3 g/dL (14.0-18.0); Mean Corpuscular HGB CONC 32.3 g/dL (32.0-36.0); Mean Corpuscular Hemoglobin 32.8 pg (27.0-31.0); Mean Platelet Volume 8.3 fL (7.4-10.4); Platelet Count 218 thou/uL (130-400); RBC Distribution Width 13.4 % (11.5-14.5); Red Blood Cell (RBC) Count 3.44 mill/uL (4.70-6.10); White Blood Cell (WBC) Count 8.7 thou/uL (4.8-10.8)
[2018-11-07 16:48] LABS: Anion Gap 17 mmol/L (10-20); BUN (Urea Nitrogen) 78 mg/dL (8.4-25.7); Calc. Creatinine Clearance 0 mL/min (70-130); Carbon Dioxide 20 mmol/L (23-31); Chloride 109 mmol/L (98-107); Estimated GFR-MDRD 19; Glucose 133 mg/dL (83-110); Potassium 4.6 mmol/L (3.5-5.1); Sodium 141 mmol/L (136-145)
--- NOTE | 2018-11-07 17:18 | EKG ---
Test Reason : Blood Pressure : / mmHG Vent. Rate : 068 BPM Atrial Rate : 068 BPM P-R Int : 154 ms QRS Dur : 096 ms QT Int : 382 ms P-R-T Axes : 033 016 259 degrees QTc Int : 406 ms Normal sinus rhythm Possible Inferior infarct , age undetermined Nonspecific ST-T changes Abnormal ECG When compared with ECG of 03-NOV-2018 16:30, (Unconfirmed) Premature ventricular complexes are no longer Present Vent. rate has decreased BY 36 BPM T wave inversion more evident in Inferior leads Confirmed by DR. Merline GUY ([id number]) on 11/07/2018 5:18:28 PM Referred By: NIESHA Confirmed By:DR. Merline GUY
== END 2018-11-07 13:16 | disposition home or self-care (01) ==
LOC: LABBT 13:15
PROVIDERS: ATTEND Specialist
DX: Z01.818 Encounter for other preprocedural examination (principal); C34.12 Malignant neoplasm of upper lobe, left bronchus or lung; J90 Pleural effusion, not elsewhere classified; J98.4 Other disorders of lung
CPT/HCPCS: 71046; 80048; 85025; 93005; 93010

== ENCOUNTER 2018-11-10 17:35 | Inpatient (IN) | payer MEDICARE ==
[2018-11-10 18:41] LABS: #Lymphocytes 0.6 thou/uL (1.20-3.40); #Neutrophils 3.7 thou/uL (1.40-6.50); %Basophils 0.3 % (0.0-1.0); %Eosinophils 0.5 % (0.0-10.0); %Lymphocytes 13.2 % (21.0-51.0); %Monocytes 0.8 % (0.0-10.0); %Neutrophils 85.2 % (42.0-75.0); Mean Corpuscular HGB CONC 32.9 g/dL (32.0-36.0); Mean Corpuscular Hemoglobin 33.1 pg (27.0-31.0); Mean Platelet Volume 7.8 fL (7.4-10.4); Platelet Count 159 thou/uL (130-400); RBC Distribution Width 13.1 % (11.5-14.5); Red Blood Cell (RBC) Count 3.32 mill/uL (4.70-6.10); White Blood Cell (WBC) Count 4.4 thou/uL (4.8-10.8)
[2018-11-10 19:03] LABS: ALT (SGPT) 15 U/L (8-55); AST (SGOT) 35 U/L (5-34); Albumin 3.1 g/dL (3.4-4.8); Alkaline Phosphatase 73 U/L (40-150); Anion Gap 18 mmol/L (10-20); BUN (Urea Nitrogen) 69 mg/dL (8.4-25.7); Bilirubin, Total 0.3 mg/dL (0.2-1.2); Calc. Creatinine Clearance 0 mL/min (70-130); Calcium 9.7 mg/dL (7.8-10.44); Carbon Dioxide 18 mmol/L (23-31); Chloride 111 mmol/L (98-107); Estimated GFR-MDRD 28; Globulin 3.2 g/dL (2.4-3.5); Glucose 118 mg/dL (83-110); Potassium 4.8 mmol/L (3.5-5.1); Protein, Total 6.3 g/dL (5.8-8.1); Sodium 142 mmol/L (136-145)
--- NOTE | 2018-11-10 19:21 | RAD ---
CHEST ONE VIEW PORTABLE: History: 78-year-old male with history of dyspnea. Left sided pain. Prior thoracentesis. History of lung cance r. FINDINGS: A very large left pleural effusion is noted, larger than on the 11-03-18 study. It is also larger than on a 11-07-18 study. Right lung is clear. IMPRESSION: Enlarging left sided pleural effusion. POS: [facility]
[2018-11-10] MEDS ORDERED: Sodium Chloride 0.9% 1,000 ML IV SCH (21:42)
[2018-11-10] MEDS ORDERED: Ondansetron PF 4 MG/2 ML Vial IVP PRN (21:42)
[2018-11-10] MEDS ORDERED: Acetaminophen 325 MG TAB PO PRN (21:42)
[2018-11-10] MEDS ORDERED: Ondansetron ODT 4 MG TAB SL PRN (21:42)
[2018-11-10 23:04] VITALS: BMI 28.3
[2018-11-11] MEDS ORDERED: Morphine 4 MG/ML VIAL SLOW IVP PRN (00:43)
[2018-11-11] MEDS ORDERED: Lidocaine 2% PF 5 ML VIAL ONE (06:35)
[2018-11-11] MEDS ORDERED: Bupivacaine HCl 0.5%/Epinephrine 1:200,000/PF 30 ml Vial ONE (06:35)
[2018-11-11] MEDS ORDERED: Heparin 10,000 UNITS/1 ML VIAL ONE (06:35)
[2018-11-11] MEDS ORDERED: Midazolam HCl 2 mg/2 ml Vial ONE ×2 (06:53→07:21)
[2018-11-11] MEDS ORDERED: Fentanyl 100 MCG/2 ML VIAL ONE ×2 (06:53→15:46)
[2018-11-11] MEDS ORDERED: PROPOFOL 60 ML ONE (06:53)
[2018-11-11] MEDS ORDERED: CEFAZOLIN 2 GM/50 ML BAG ONE (07:26)
[2018-11-11] MEDS ORDERED: Ondansetron HCl/PF 4 MG/2 ML Vial IVP PRN ×2 (08:01→16:30)
[2018-11-11] MEDS ORDERED: Ibuprofen 600 MG TAB PO PRN (08:49)
[2018-11-11] MEDS ORDERED: Acetaminophen 500 MG TAB PO PRN (08:49)
[2018-11-11] MEDS ORDERED: traMADol HCl 50 MG TAB PO PRN ×2 (08:49)
--- NOTE | 2018-11-11 09:16 | OP ---
DATE OF PROCEDURE: 11/11/2018 PREOPERATIVE DIAGNOSIS: Metastatic left lung cancer with pleural effusion, need antineoplastic chemotherapy access. POSTOPERATIVE DIAGNOSIS: Metastatic left lung cancer with pleural effusion, need antineoplastic chemotherapy access. PROCEDURE PERFORMED: Left subclavian vein low-profile MediPort. ANESTHESIA: Intravenous sedation, local of 0.5% Marcaine with epinephrine 30 mL mixed with 2% Xylocaine 10 mL. No fluoroscopy used. DESCRIPTION OF PROCEDURE: The patient was taken to the operating room, where under intravenous sedation, neck and chest were prepared with ChloraPrep and draped in routine fashion. Local anesthetic was infiltrated in the skin and subcutaneous tissue about the operative site. Trocar catheter was cannulated in the subclavian vein, infraclavicular approach and incision was made, carried down to skin and subcutaneous tissue, and a pocket was created with blunt and sharp dissection using cautery for hemostasis. Dilator and Peel-Away sheath were placed over the J-wire into superior vena cava, and dilator and J-wire were removed. Catheter was placed through the Peel-Away sheath. Peel-Away sheath was removed. Fluoroscopically, catheter tip was placed in optimal position in the superior vena cava and catheter tied, only connected to the MediPort, which was placed in subcutaneous pocket and secured with two interrupted suture of 3-0 Prolene. Subcutaneous tissue was approximated with 3-0 Monocryl, skin with subdermal 4-0 Monocryl, and [place]-glue applied. MediPort access with a Rider needle, aspirated blood, flushed with heparinized saline solution. Fluoroscopy revealed good line and catheter placement, MediPort placement. Job ID: [id number]
--- NOTE | 2018-11-11 09:39 | RAD ---
CHEST ONE VIEW: History: Dyspnea. Comparison: 11-10-17 FINDINGS: Opacification of the left hemithorax has worsened with minimal aeration at the left apex. Cardiac clay houette is obscured. Pulmonary vasculature on the right is more engorged. Tip of a new left subclavian portacath projects over the cavoatrial junction. No evidence of pneumoth orax. IMPRESSION: 1. Left subclavian Mediport is in good radiographic position. 2. Increasing very large left pleural effusion and pulmonary vascular congestion. POS: [facility]
--- NOTE | 2018-11-11 10:31 | CON ---
DATE OF CONSULTATION: HISTORY OF PRESENT ILLNESS: Jamal Curtis was readmitted to the hospital last night with recurrent shortness of breath. He has had small-cell lung cancer. Apparently, he is status post chemotherapy. He had MediPort catheter inserted by Dr. Atkins today. X-ray shows complete opacification of his left lung. He said he is coughing some yellow sputum, but no chills or sweats. Recent medical history is well outlined from his admission in September. Lives in [place]. PAST MEDICAL HISTORY: Pertinent for coronary artery disease, hypertension, COPD, diabetes, depression, former smoker. MEDICATIONS: Medicines from home include: 1. Metformin 500 twice a day. 2. Valsartan. 3. Zoloft 100. 4. . 5. Toprol-XL twice a day. 6. Insulin. 7. Plavix 75. 8. Amlodipine 5. 9. Allopurinol. He has now received morphine, fentanyl, nebulizer treatment. ALLERGIES: NONE. SOCIAL HISTORY: As per the previous records. FAMILY HISTORY: As per the previous records. PHYSICAL EXAMINATION: VITAL SIGNS: Saturations are 94% on 2 L, respiratory rate , temperature 98, blood pressure 130/65. CHEST: Decreased breath sounds in left lung. CARDIAC: Normal S1 and S2. No gallops. ABDOMEN: Soft without any masses. IMPRESSION: 1. Recurrent left pleural effusion massive. 2. Recent MediPort insertion. 3. Small-cell cancer. 4. Diabetes. 5. Coronary artery disease. PLAN: Discussed with Surgery to put a tunneled catheter in the left chest. Hopefully, this should prevent him from recurrent thoracentesis hoping his chemotherapy work. We will decide neb treatments, supportive care, PT. This is a consultation note, 70 minutes. Job ID: [id number]
[2018-11-11] MEDS ORDERED: Bisacodyl 5 MG TAB PO PRN (11:54)
--- NOTE | 2018-11-11 14:54 | HP ---
REASON FOR ADMISSION: Massive left pleural effusion. HISTORY OF PRESENT ILLNESS: The patient gives history of severe shortness of breath which started out from last 2 days. This has been progressively getting worse. He finally managed to call EMS, and the patient was brought here. On arrival, the patient had chest x-ray done, which showed a massive effusion on the left lung. The patient has known history of small-cell lung cancer. No complaints of fever or chest pain. PAST MEDICAL AND SURGICAL HISTORY: 1. History of small-cell lung cancer in left. 2. Left pleural metastasis. 3. Bilateral cervical malignant metastatic lymphadenopathy including supraclavicular. He also has mediastinal lymphadenopathy bilaterally. 4. Peripheral vascular disease with right common iliac artery stent. 5. COPD. 6. Hypertension. 7. Diabetes mellitus type 2. 8. Coronary artery disease with prior stent done in 2001. 9. Spinal stenosis. 10. Gout. 11. Dyslipidemia. 12. History of AAA. 13. Benign prostatic hypertrophy. 14. Right carotid endarterectomy. CURRENT MEDICATIONS: The patient is on, 1. Toprol-XL 12.5 mg twice daily. 2. Ranitidine 150 mg twice daily. 3. Cilostazol 100 mg twice daily. 4. Sertraline 100 mg daily. 5. Plavix 75 mg daily. 6. Metformin 500 mg twice daily. 7. Norvasc 5 mg daily. 8. Levemir 21 units subcu twice daily. 9. Advair Diskus inhaler daily. 10. Atorvastatin 10 mg p.o. at bedtime. 11. Allopurinol 150 mg p.o. daily. 12. Valsartan with hydrochlorothiazide 320/12.5 mg p.o. daily. 13. Aspirin 81 mg p.o. daily. ALLERGIES: NO KNOWN DRUG ALLERGIES. PERSONAL HISTORY: Quit smoking a month back prior to which was smoking one pack a day for nearly 50 years. Does not abuse alcohol or drugs. Lives with his . He ambulates by himself. FAMILY HISTORY: No significant family history of early coronary artery disease or stroke. His has dementia. CODE STATUS: Full. POWER OF SPOT WELDER: His daughter, Ms. Mireles because has dementia. REVIEW OF SYSTEMS: CONSTITUTIONAL: Negative for weight loss or gain, ability to conduct usual activities. SKIN: Negative for rash, itching. EYES: Negative for double vision, pain. ENT/MOUTH: Negative for nose bleeding, neck stiffness, pain, tenderness. CARDIOVASCULAR: Negative for palpitations, dyspnea on exertion, orthopnea. RESPIRATORY: Negative for shortness of breath, wheezing, cough, hemoptysis, fever or night sweats. GASTROINTESTINAL: Negative for poor appetite, abdominal pain, heartburn, nausea, vomiting, constipation, or diarrhea. GENITOURINARY: Negative for urgency, frequency, dysuria, nocturia. MUSCULOSKELETAL: Negative for pain, swelling. NEUROLOGIC/PSYCHIATRIC: Negative for anxiety, depression. ALLERGY/IMMUNOLOGIC: Negative for skin rash, bleeding tendency. PHYSICAL EXAMINATION: GENERAL: The patient is a 78-year-old male, who is currently not in any acute distress. VITAL SIGNS: Blood pressure is 118/66, pulse 90 per minute, respiratory rate 20 per minute, temperature 97.4 degrees Fahrenheit, and saturating 98% on 3 L nasal cannula. NECK: Supple. No elevated JVD. HEENT: Eyes; extraocular muscles are intact. Pupils are reacting to light. Oral cavity, mucous membranes are dry. No exudates or congestion. CARDIOVASCULAR SYSTEM: S1 and S2 heard. Regular rhythm. RESPIRATORY SYSTEM: There is no air entry in the left hemithorax. On the right hemithorax, there are no wheezes or rhonchi. ABDOMEN: Soft. Bowel sounds heard. No tenderness, rigidity, or guarding. EXTREMITIES: No peripheral edema or calf tenderness. VASCULAR SYSTEM: Peripheral pulses 1+ bilateral. No ischemic ulcerations or gangrene. CENTRAL NERVOUS SYSTEM: No gross focal deficits noted. The patient is alert and oriented well. PSYCHIATRIC SYSTEM: The patient's mood is euthymic. No hallucinations or delusions. LABORATORY DATA: White count of 4, hemoglobin and hematocrit of 11 and 33, platelet count is 159, MCV is 101 with 85% neutrophils. Serum bicarb is 18, BUN 69, creatinine 2.28, serum glucose 118. Albumin is 3.1. BNP 130. Troponin I 0.01. Liver enzymes; AST 35, total bilirubin 0.3. Preliminary blood cultures x2 shows no growth. Chest x-ray done shows complete opacification of left hemithorax with effusion. EKG done shows normal sinus rhythm at 98 beats per minute. CLINICAL IMPRESSION AND PLAN: The patient will be placed under observation on Med/Surg floor for recurrent pleural effusion on the left lung with history of small-cell lung cancer. He has had two prior thoracenteses done in the past. In view of recurrent effusion and large volume mass in the left lung, Dr. Jack has been consulted for likely PleurX catheter. I have discussed his findings with Dr. Tsang. We will continue his home dose of allopurinol, Norvasc, aspirin, atorvastatin, DuoNebs. Metformin will be held. We will continue Toprol-XL, multivitamin, and sertraline as before. The patient has acute kidney injury on top of all of this and we will gently hydrate him for the same. If the patient's renal function gets worse, he will be switched over to inpatient status tomorrow. He is currently under observation. He has had MediPort placed by Dr. Atkins earlier this morning in the left infraclavicular area, likely subclavian. His overall prognosis appears to be guarded. The patient does not know if he is started on chemotherapy. He is supposed to see Dr. Maycol Gonzalez for Oncology. Job ID: [id number]
--- NOTE | 2018-11-11 15:48 | ULT ---
RENAL SONOGRAM: HISTORY: Renal insufficiency. FINDINGS: The right kidney is 10.4 cm with a normal appearance. The left kidney is 11.5 cm. No hydronephrosis . Small exophytic cyst at the inferior pole is 0.8 cm. Urinary bladder is incompletely distended. IMPRESSION: Small left renal cyst. No evidence of urinary tract obstruction. POS: [facility]
[2018-11-11] MEDS ORDERED: Promethazine HCl 25 MG/ML VIAL SLOW IVP PRN (16:30)
[2018-11-11] MEDS ORDERED: Promethazine HCl 25 MG/ML VIAL IM PRN (16:30)
[2018-11-11] MEDS ORDERED: Lidocaine 1% PF 5 ML VIAL ONE (16:42)
[2018-11-11] MEDS ORDERED: PROPOFOL 200 MG/20 ML VIAL ONE ×2 (16:42→16:45)
[2018-11-11] MEDS ORDERED: PHENYLEPHRINE-NS 100 MCG/ML 10 ML SYRINGE ONE (16:42)
[2018-11-11] MEDS ORDERED: ePHEDrine/0.9% NaCl/PF SYRINGE 50 mg/10 ml ONE (16:42)
[2018-11-11] MEDS ORDERED: HYDROcodone/Acetaminophen 5/325 mg Tablet PO PRN (17:03)
--- NOTE | 2018-11-11 17:55 | RAD ---
RADIOGRAPH CHEST 1 VIEW: Date: 11/11/2018 Time: 3:46 p.m. HISTORY: A 78-year-old male with pleural effusion, status post thoracentesis. COMPARISON: 11/11/2018 at 7:44 a.m. FINDINGS: The very large left pleural effusion, which caused total opacification of the left hemithorax on the previous study, has decreased in volume. A significant degree of partial opacification of the left h emithorax remains, due to residual pleural fluid. There has been interval improvement in aeration of the left lung. There is a curvilinear density now overlying the mid lung zone, which appears to be a small caliber chest tube. No pneumothorax is visualized. Implantable vascular access port is agai n noted. Cardiomegaly. Right lung is relatively clear. IMPRESSION: 1. Interval placement of left-sided pleural catheter and interval left pleurocentesis. 2. No pneumothorax. THIAGO [] POS: [facility]
[2018-11-11] MEDS: Mometasone/Formoterol 120 PUFF INHALER INH SCH (19:33)
[2018-11-11] MEDS ORDERED: Atorvastatin Calcium 10 MG TAB PO SCH (21:00)
[2018-11-11] MEDS ORDERED: metFORMIN 500 MG TAB PO SCH (21:00)
[2018-11-11] MEDS ORDERED: Allopurinol 300 MG TAB PO SCH (21:00)
[2018-11-11] MEDS: Sodium Chloride 0.45% 1,000 ML IV SCH (23:06)
--- NOTE | 2018-11-12 00:04 | CON ---
DATE OF CONSULTATION: 11/11/2018 TYPE OF CONSULTATION: Nephrology. REASON FOR CONSULTATION: Elevated creatinine. HISTORY OF PRESENT ILLNESS: This is a very pleasant 78-year-old gentleman, who was admitted today for left-sided pleural effusion. The patient has a history of CKD and has been taking ibuprofen. His creatinine baseline was 1.2 on November 03, which increased to 3.2 on November 07 and is 2.2 today after hydration. The patient denies no headache, numbness, tingling, or weakness. Has some dyspnea. The patient history of small-cell lung cancer. PAST MEDICAL HISTORY: History of small-cell lung cancer, pleural metastasis, lymphadenopathy, COPD, hypertension, diabetes mellitus, CKD, acute kidney injury, BPH, carotid endarterectomy. HOME MEDICATION LIST: Reviewed. HOSPITAL MEDICATION LIST: Reviewed. ALLERGIES: REVIEWED. SOCIAL HISTORY: No alcohol or drug use. REVIEW OF SYSTEMS: A 15-point review of system was performed and was negative except for positives noted above. GENERAL: HEAD: NECK: No swelling or lumps. NOSE: No epistaxis or discharge. EYES: No diplopia or pain. 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 NEUROPSYCHIATIC SYSTEMS: No suicidal ideation. No ideation. SKIN: Denies any rash or ulcer. CONSTITUTIONAL: No fever or chills. PHYSICAL EXAMINATION: GENERAL: The patient is awake and alert. VITAL SIGNS: Afebrile, pulse 78, breathing 16, blood pressure 119/66. GENERAL APPEARANCE AND MENTAL STATUS: Fair. HEAD/NECK: Normocephalic. Atraumatic. EYES: EOMI. No deformity. EARS: Clear. No ulcers. NOSE: Intact. No lesions. MOUTH: Clear. No discharge. THROAT: Clear. No exudate. LUNGS: Clear. No crackles. CARDIAC: S1, S2. No rub. ABDOMEN: Benign. Bowel sounds positive. GENITALIA/RECTUM: Fitzgerald absent. BACK/EXTREMITIES: Edema 0+. NEUROLOGICAL: Alert and motor intact. SKIN: LYMPHATICS: LABORATORY DATA: Labs show bicarb 18, creatinine 2.2. ASSESSMENT AND PLAN: 1. Acute kidney injury, chronic kidney disease most likely due to decreased effective arterial blood volume. Agree with gentle hydration. Avoid NSAID. Medication based on GFR appropriate. 2. Anemia, stable. Medication based on GFR appropriate. No indication for dialysis at this time. Job ID: [id number]
[2018-11-12] MEDS: Sodium Chloride 0.45% 1,000 ML IV SCH (05:19)
[2018-11-12] MEDS: Mometasone/Formoterol 120 PUFF INHALER INH SCH (07:35)
--- NOTE | 2018-11-12 07:42 | OP ---
DATE OF PROCEDURE: 11/11/2018 PREOPERATIVE DIAGNOSIS: Malignant effusion, left. PROCEDURE: PleurX catheter. ANESTHESIA: IV sedation with local anesthetic. DESCRIPTION OF PROCEDURE: After IV sedation, 1% lidocaine was used to infiltrate the skin. A needle was used to aspirate pleural fluid. An Angiocath was placed. Wire placed through the Angiocath and then a tunnel created for the catheter to exit through the skin. The peel-away sheath was then introduced without difficulty and the catheter advanced into the chest, and 3 L of blood-tinged fluid were removed. Wounds were closed and the patient tolerated the procedure well. Job ID: [id number]
[2018-11-12] MEDS ORDERED: Fish Oil 1,000 MG CAP PO SCH (09:00)
[2018-11-12] MEDS ORDERED: Multivit, Therapeutic 1 TAB PO SCH (09:00)
[2018-11-12] MEDS ORDERED: Amlodipine 10 MG TAB PO SCH (09:00)
[2018-11-12] MEDS ORDERED: Famotidine 20 MG TAB PO SCH (09:00)
--- NOTE | 2018-11-12 09:45 | PRG ---
DATE OF SERVICE: SUBJECTIVE: A 78-year-old gentleman, status post tunneled catheter insertion. X-ray shows much improvement in his pleural effusion. OBJECTIVE: VITAL SIGNS: Sats 95% on room air, temperature 97, blood pressure 101/61, respiratory rate 18. CHEST: Decreased breath sounds, no wheezing. CARDIAC: Normal S1 and S2. No gallops. ABDOMEN: Soft without masses. IMPRESSION: Metastatic small cell with recurrent pleural effusion, status post PleurX catheter. PLAN: He can be discharged home any time. Follow up with his oncologist. He is told to see him in the office as needed. Job ID: [id number]
[2018-11-12 09:55] LABS: Hemoglobin 10.1 g/dL (14.0-18.0)
[2018-11-12 10:13] LABS: Anion Gap 13 mmol/L (10-20); BUN (Urea Nitrogen) 49 mg/dL (8.4-25.7); Calc. Creatinine Clearance 52 mL/min (70-130); Calcium 8.9 mg/dL (7.8-10.44); Carbon Dioxide 24 mmol/L (23-31); Chloride 109 mmol/L (98-107); Estimated GFR-MDRD 44; Glucose 92 mg/dL (83-110); Potassium 4.5 mmol/L (3.5-5.1); Sodium 141 mmol/L (136-145)
--- NOTE | 2018-11-12 11:55 | PDOC.PN ---
- Subjective Encounter Start Date: 11/12/18 Encounter Start Time: 07:00 Subjective: feels better, sob is better -: is sitting up, eating breakfast - Objective MAR Reviewed: Yes Vital Signs & Weight: Vital Signs (12 hours) Temp Pulse Resp BP BP Pulse Ox 11/12/18 10:40 69 16 94 L 11/12/18 09:38 94 L 11/12/18 08:49 67 101/61 11/12/18 08:00 97.5 F L 67 14 101/61 94 L 11/12/18 07:25 92 L 11/12/18 07:24 66 16 92 L 11/12/18 04:00 98.2 F 76 18 133/64 95 11/12/18 02:10 73 16 95 11/12/18 00:00 98.4 F 71 20 98/53 L 94 L Weight Weight 197 lb 3 oz I&O: 11/11/18 11/12/18 11/13/18 06:59 06:59 06:59 Intake Total 1675 1275 Output Total 675 775 Balance 1000 500 Result Diagrams: 11/12/18 09:31 11/12/18 09:31 Additional Labs: Accuchecks 11/12/18 11/11/18 10:41 20:16 POC Glucose 83 152 H Phys Exam - Physical Examination HEENT: PERRLA, moist MMs Neck: no JVD, supple Respiratory: no rales decreased air entry left hemithorax Cardiovascular: RRR, no significant murmur Gastrointestinal: soft, non-tender, positive bowel sounds Musculoskeletal: no edema, pulses present Neurological: non-focal, moves all 4 limbs Psychiatric: normal affect, A&O x 3 Dx/Plan (1) Recurrent left pleural effusion Code(s): J90 - PLEURAL EFFUSION, NOT ELSEWHERE CLASSIFIED Status: Acute Comment: s/p pleuryx cath (2) Small cell lung cancer, left lower lobe Code(s): C34.32 - MALIGNANT NEOPLASM OF LOWER LOBE, LEFT BRONCHUS OR LUNG Status: Acute (3) COPD (chronic obstructive pulmonary disease) Status: Chronic Qualifiers: COPD type: chronic bronchitis Chronic bronchitis type: unspecified Qualified Code(s): J42 - Unspecified chronic bronchitis (4) SOCORRO (acute kidney injury) Code(s): N17.9 - ACUTE KIDNEY FAILURE, UNSPECIFIED Status: Acute (5) CKD (chronic kidney disease) stage 3, GFR 30-59 ml/min Code(s): N18.3 - CHRONIC KIDNEY DISEASE, STAGE 3 (MODERATE) Status: Chronic (6) AAA (abdominal aortic aneurysm) Code(s): I71.4 - ABDOMINAL AORTIC ANEURYSM, WITHOUT RUPTURE Status: Chronic Qualifiers: Presence of rupture: without rupture Qualified Code(s): I71.4 - Abdominal aortic aneurysm, without rupture (7) CAD (coronary artery disease) Code(s): I25.10 - ATHSCL HEART DISEASE OF [place] CORONARY ARTERY W/O ANG PCTRS Status: Chronic Qualifiers: Coronary Disease-Associated Artery/Lesion type: [place] artery [place] vs. transplanted heart: [place] heart Associated angina: without angina Qualified Code(s): I25.10 - Atherosclerotic heart disease of [place] coronary artery without angina pectoris (8) HTN (hypertension) Code(s): I10 - ESSENTIAL (PRIMARY) HYPERTENSION Status: Chronic Qualifiers: Hypertension type: essential hypertension Qualified Code(s): I10 - Essential (primary) hypertension (9) Type 2 diabetes mellitus Status: Chronic Qualifiers: Diabetes mellitus nursing home insulin use: with nursing home use Diabetes mellitus complication status: with unspecified complications Qualified Code(s) : E11.8 - Type 2 diabetes mellitus with unspecified complications; Z79.4 - FDC (current) use of insulin - Plan to learn to use pleuryx cath, needs to drain some today prior to going home -: dc home -: to f/u with onc as adv -: continue asp, plavix, lipitor, norvasc, toprol * .
[2018-11-12 12:22] VITALS: BP 130/72; TEMP 97.7
--- NOTE | 2018-11-12 12:26 | PRG ---
DATE OF SERVICE: 11/12/2018 SUBJECTIVE: A 78-year-old gentleman being seen for acute kidney injury. The patient denied any nausea, vomiting, or chest pain. OBJECTIVE: GENERAL: The patient is awake and alert. VITAL SIGNS: Pulse 69, breathing 16, blood pressure 101/61. GENERAL APPEARANCE AND MENTAL STATUS: Fair. HEAD/NECK: Normocephalic. Atraumatic. EYES: EOMI. No deformity. EARS: Clear. No ulcers. NOSE: Intact. No lesions. MOUTH: Clear. No discharge. THROAT: Clear. No exudate. LUNGS: Clear. No crackles. CARDIAC: S1, S2. No rub. ABDOMEN: Benign. Bowel sounds positive. GENITALIA/RECTUM: Fitzgerald absent. BACK/EXTREMITIES: Edema 0+. NEUROLOGICAL: Alert and motor intact. SKIN: LYMPHATICS: LABORATORY DATA: Hemoglobin 10.1, creatinine 1.5. ASSESSMENT AND PLAN: 1. Acute kidney injury with chronic kidney disease, stable. 2. Hypertension, stable. 3. Anemia, stable. The patient will follow up to see me in 2 weeks. Job ID: [id number]
--- NOTE | 2018-11-14 08:08 | DIS ---
DATE OF ADMISSION: 11/12/2018 DATE OF DISCHARGE: 11/12/2018 DISCHARGE DISPOSITION: Home. PRIMARY DISCHARGE DIAGNOSES: 1. Recurrent left-sided pleural effusion, likely malignant, status post PleurX catheter. 2. History of small-cell lung cancer, left lower lobe. 3. Acute kidney injury with history of chronic kidney disease stage 3. 4. Chronic obstructive pulmonary disease. 5. History of abdominal aortic aneurysm. 6. Coronary artery disease. 7. Hypertension. 8. Diabetes mellitus type 2. PROCEDURES DONE DURING HOSPITALIZATION: The patient had chest x-ray done on the day of admission, which showed enlarging left-sided pleural effusion, had PleurX catheter placed to the left side for malignant effusion. He had drainage of 3 L of blood-tinged fluid. An additional 1 L was drained on the prior to discharge. The patient also had MediPort placed by Dr. Atkins. Hemoglobin and hematocrit 10 and 30, platelet count 159. Discharge BUN and creatinine 49 and 1.5. Admitting BUN and creatinine were 69 and 2.2. DISCHARGE MEDICATIONS: 1. DuoNeb q.6 hourly. 2. Allopurinol 150 mg p.o. at bedtime. 3. Norvasc 5 mg daily. 4. Aspirin 162 mg p.o. at bedtime. 5. Atorvastatin 10 mg p.o. at bedtime. 6. Cilostazol 50 mg twice daily. 7. Plavix 75 mg daily. 8. Advair inhaler twice daily. 9. Levemir 22 units subcu twice daily. 10. Metformin 500 mg p.o. twice daily. 11. Toprol-XL 12.5 mg twice daily. 12. Fish oil 1000 mg capsule once daily. 13. Ranitidine 150 mg twice daily. 14. Selenium 25 mcg daily. 15. Sertraline 100 mg daily. ALLERGIES: NO KNOWN DRUG ALLERGIES. INPATIENT CONSULTANTS: Dr. Tsang for Pulmonology, Dr. Jack for Vascular and Cardiothoracic Surgery, Dr. Wright for Nephrology. DISCHARGE PLAN: The patient is to follow up with his oncologist as advised. BRIEF COURSE DURING HOSPITALIZATION: The patient initially got admitted on the with complaints of increasing shortness of breath. Initial x-ray done revealed massive left-sided pleural effusion. He has had 2 prior thoracenteses done on the same side with malignant effusion due to small-cell lung cancer. The patient has had consultation with Dr. Tsang and Dr. Jack. In view of recurrent effusion, he has had PleurX catheter placed and was educated regarding using the same. He has had a total of 3 L with placement of the PleurX catheter and extra 1 L drained prior to discharge on the . The patient had gentle hydration for his acute kidney injury. Prior to discharge, he is ambulating and eating well. He needs to follow up with his oncologist for further workup and treatment for the small cell carcinoma that he has. During his hospital stay, he also had MediPort placed by Dr. Atkins. Please see a [id number] documentation for the day of discharge on [facility]. Job ID: [id number]
== END 2018-11-12 15:07 | disposition home or self-care (01) | DRG 181 ==
LOC: ERS 17:35 → SURG A 21:29 → OBSVTOIN 11-12 09:13
PROVIDERS: ADMIT Internal Medicine; ATTEND Internal Medicine
PROC: 0W9B30Z Drainage of Left Pleural Cavity with Drainage Device, Percutaneous Approach (ICD-10-PCS; principal; 2018-11-11)
DX: C34.32 Malignant neoplasm of lower lobe, left bronchus or lung (principal); N17.9 Acute kidney failure, unspecified; J91.0 Malignant pleural effusion; C78.2 Secondary malignant neoplasm of pleura; E78.00 Pure hypercholesterolemia, unspecified; J44.9 Chronic obstructive pulmonary disease, unspecified; M10.9 Gout, unspecified; I12.9 Hypertensive chronic kidney disease with stage 1 through stage 4 chronic kidney disease, or unspecified chronic kidney disease; D64.9 Anemia, unspecified; N18.3 Chronic kidney disease, stage 3 (moderate); N40.0 Benign prostatic hyperplasia without lower urinary tract symptoms; I71.4 Abdominal aortic aneurysm, without rupture; I25.10 Atherosclerotic heart disease of native coronary artery without angina pectoris; E11.22 Type 2 diabetes mellitus with diabetic chronic kidney disease; Z79.899 Other long term (current) drug therapy; Z79.02 Long term (current) use of antithrombotics/antiplatelets; Z92.21 Personal history of antineoplastic chemotherapy; Z98.890 Other specified postprocedural states; Z79.84 Long term (current) use of oral hypoglycemic drugs; Z87.891 Personal history of nicotine dependence
CPT/HCPCS: 36415; 36416; 71045; 76770; 80048; 80053; 83880; 84484; 85014; 85018; 85025; 87040; 93005; 94640; 96360; 96361; C1729; C1788; J0670; J1642; J1644; J2001; J2250; J2270; J2704; J3010; J7620

== ENCOUNTER 2018-11-16 11:41 | Inpatient (IN) | payer MEDICARE ==
[2018-11-16 13:31] LABS: Elliptocytes SLIGHT = 2-5 cells (100X) (0-1/hpf); Hemoglobin 9.2 g/dL (14.0-18.0); MDiff Complete? YES; Mean Corpuscular HGB CONC 33.1 g/dL (32.0-36.0); Mean Corpuscular Hemoglobin 32.1 pg (27.0-31.0); Mean Corpuscular Volume 96.9 fL (78.0-98.0); Mean Platelet Volume 4.3 fL (7.4-10.4); Platelet Count 7 thou/uL (130-400); Platelet Morphology Comment Appears Decreased; RBC Distribution Width 12.3 % (11.5-14.5); Red Blood Cell (RBC) Count 2.85 mill/uL (4.70-6.10); White Blood Cell (WBC) Count 0.4 thou/uL (4.8-10.8)
[2018-11-16 13:32] LABS: ALT (SGPT) 17 U/L (8-55); AST (SGOT) 22 U/L (5-34); Albumin 2.7 g/dL (3.4-4.8); Alkaline Phosphatase 65 U/L (40-150); Anion Gap 13 mmol/L (10-20); BUN (Urea Nitrogen) 25 mg/dL (8.4-25.7); Bilirubin, Total 0.5 mg/dL (0.2-1.2); Calc. Creatinine Clearance 0 mL/min (70-130); Calcium 8.4 mg/dL (7.8-10.44); Carbon Dioxide 23 mmol/L (23-31); Chloride 103 mmol/L (98-107); Estimated GFR-MDRD 46; Globulin 2.8 g/dL (2.4-3.5); Glucose 99 mg/dL (83-110); Potassium 3.4 mmol/L (3.5-5.1); Protein, Total 5.5 g/dL (5.8-8.1); Sodium 136 mmol/L (136-145)
--- NOTE | 2018-11-16 13:45 | RAD ---
PORTABLE CHEST: Date: 11/16/18 PROVIDED CLINICAL HISTORY: Fever. FINDINGS: Comparison with 11/11/18. Cardiac and mediastinal silhouette is unchanged in appearance. Vascular calcification involves the ao rtic arch. Left subclavian implanted port is redemonstrated in similar position. Left-sided chest tub e is again seen in similar position. Persistent left basilar pleural parenchymal opacity. Somewhat im proved left hemithoracic air space disease. No evidence for pneumothorax. IMPRESSION: Interval improvement in left hemithoracic pleural parenchymal opacity. POS: OSCAR
[2018-11-16 14:15] LABS: Bilirubin Negative (Negative); Blood, Urine Trace (Negative); Clarity CLOUDY (Clear); Glucose, Urine (Dipstick) Negative (Negative); Leukocyte Negative (Negative); Nitrite Negative (Negative); Protein, Urine (Dipstick) 30 mg/dL (Neg-Trace); Specific Gravity, Urine 1.021 (1.002-1.036); Urobilinogen 0.2 mg/dL (0.2-1.0); pH, Urine 5.5 (5.0-9.0)
[2018-11-16 14:18] LABS: RBC/HPF 0-3 HPF (0-3); Squamous Epithelial 0-3 HPF (0-3); WBC/HPF 0-3 HPF (0-3)
[2018-11-16 14:22] LABS: Pathc Cast-AUWi Flag 3.19 (0-2.49); Yeast-AUWi Flag 98.5 (0-25.0)
[2018-11-16 14:31] LABS: Bacteria/HPF Rare-Few HPF (None Seen); Hyaline Casts/LPF NONE SEEN LPF (0-3 Hyaline); Manual Microscopic Reviewed? No Path Casts Seen; Renal Epithelial None Seen HPF (0-3); Transitional Epithelial NONE SEEN HPF (0-3); Yeast-All Forms None Seen HPF (None Seen)
[2018-11-16] MEDS ORDERED: Cefepime 2 GM VIAL ONE (15:11)
[2018-11-16] MEDS ORDERED: Acetaminophen 500 MG TAB ONE (15:45)
[2018-11-16] MEDS ORDERED: Dextrose 5% in Water 1,000 ML IV PRN (15:47)
[2018-11-16] MEDS ORDERED: HYDROcodone/Acetaminophen 5/325 mg Tablet PO PRN (15:47)
[2018-11-16] MEDS ORDERED: Dextrose 50% Abboject 50 ML SYRINGE SLOW IVP PRN (15:47)
[2018-11-16] MEDS ORDERED: Senokot S 8.6-50 MG TAB PO PRN (15:47)
[2018-11-16] MEDS ORDERED: Insulin Regular 300 UNITS/3 ML VIAL SC PRN ×2 (15:47)
[2018-11-16] MEDS ORDERED: [UNRECOGNIZED DRUG - REMARK] IVPB PRN (15:52)
[2018-11-16] MEDS ORDERED: hydrALAZINE 20 MG/ML VIAL SLOW IVP PRN (15:53)
[2018-11-16] MEDS ORDERED: Diabetic Tussin 200 MG/10 ML UDCUP PO PRN (15:54)
[2018-11-16] MEDS ORDERED: Vancomycin HCl 1 GM in Premix Bag 1 BAG IVPB SCH (16:00)
--- NOTE | 2018-11-16 16:45 | HP ---
PRIMARY CARE PHYSICIAN: Joanie Blanc MD. PRIMARY ONCOLOGIST: Dr. Gonzalez. CHIEF COMPLAINT: Fever. HISTORY OF PRESENT ILLNESS: The patient is a 78-year-old male with small cell lung cancer, presented to the emergency room with fever. He was discharged from this facility four days ago with a diagnosis of recurrent left-sided pleural effusion requiring PleurX catheter placement. He is currently on chemotherapy with last chemotherapy two weeks ago. Since yesterday, he started spiking fever up to 102 degrees Fahrenheit. He also felt generally weak and fatigued. He has a chronic productive cough, which is unchanged. He denies dysuria, hematuria, urgency, skin rash, headache, neck stiffness, nausea, vomiting, diarrhea or abdominal pain. He took Tylenol at home prior to arrival. In the emergency room, his vital signs showed temperature 99.2, respirations 20, pulse 86, with a blood pressure 152/71 with O2 saturation 99% on room air. His WBC count was 0.4 with no reportable neutrophil. Platelets were 7. Chest x-ray was negative for new infiltrate. He received cefepime in the emergency room. PAST MEDICAL HISTORY: 1. Small cell lung cancer. 2. Recurrent left-sided pleural effusion with recent PleurX catheter placement. 3. Chronic kidney disease, stage 3. 4. Chronic obstructive pulmonary disease. 5. Abdominal aortic aneurysm. 6. Peripheral vascular disease, followed by Dr. Akbar. 7. Diabetes mellitus type 2. 8. Hypertension. 9. Coronary artery disease with stent placement. 10. Gout. 11. Dyslipidemia. PAST SURGICAL HISTORY: 1. Right common iliac stent placement. 2. Biopsy for malignancy diagnosis. 3. Right carotid endarterectomy. 4. Coronary stent placement. 5. MediPort placement. ALLERGIES: NO KNOWN DRUG ALLERGIES. CURRENT HOME MEDICATIONS: Family to bring accurate list of medication. He states that his medications are unchanged from previous admissions. SOCIAL HISTORY: The patient has a long-term smoking history. Currently, he lives at home with his . Daughter is the primary caregiver. The patient makes his own decision with the help of his family. He is full code. No current alcohol or drug use. FAMILY HISTORY: Negative for early coronary artery disease or stroke. REVIEW OF SYSTEMS: All other review of systems was reviewed and were found negative. PHYSICAL EXAMINATION: VITAL SIGNS: As discussed above. GENERAL: A 78-year-old male, ill appearing, in no apparent distress. HEENT: Head, atraumatic and normocephalic. Sclerae anicteric. Moist mucous membranes. No oral lesion appreciated. HEART: S1 and S2 present. Regular rate and rhythm. No rubs or gallops. LUNGS: Showed diminished air entry at left base with few rales at bases. No accessory muscle use. Dressing over the PleurX catheter noted. NECK: Supple. No JVD appreciated. No carotid bruit. ABDOMEN: Soft and nontender. Bowel sounds present. EXTREMITIES: No edema or calf tenderness. NEUROLOGIC: Grossly nonfocal. Moves all 4 extremities. PSYCHIATRY: Alert, awake, oriented x3. LYMPH NODE: No palpable lymph nodes in the neck. PERIPHERAL VASCULAR: Radial pulses palpable bilaterally. MUSCULOSKELETAL: No joint swelling or tenderness. LABORATORY FINDINGS: WBC 0.4 with hemoglobin 9.2, hematocrit 27.6, platelet 7. Chemistry showed sodium 136, potassium 3.4, chloride 103, bicarb 23, BUN 25, creatinine 1.48. AST and ALT normal, alkaline phosphatase 65, total protein 5.5 , albumin 2.7. Urinalysis was negative for wbc or bacteria. Chest x-ray by my review was negative for new infiltrate. Telemetry monitoring by my review showed sinus rhythm. IMPRESSION: 1. Neutropenic fever/sepsis with acute organ dysfunction. 2. Significant neutropenia with WBC 0.4. 3. Thrombocytopenia with platelet of 7, probably secondary to recent chemotherapy. 4. Chronic kidney disease stage 2. 5. Hypokalemia. 6. 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 7. Chronic obstructive pulmonary disease, appears to be compensated. 8. Coronary artery disease/peripheral arterial disease. 9. Hypertension. 10. Diabetes mellitus type 2. 11. History of [id number] smoking history. 12. Abdominal aortic aneurysm. 13. Gout. 14. Benign prostatic hypertrophy. PLAN: The patient will be monitored in oncology unit. We will start him on vancomycin and cefepime. We will monitor vancomycin level. We will hold aspirin, Plavix, and cilostazol due to significant thrombocytopenia. We will transfuse 2 units of platelets per Oncology recommendation. We will resume selected home medications once confirmed. Insulin sliding scale. The patient will require 2 to 3 days for stabilization. Job ID: [id number] [facility]
[2018-11-16] MEDS: Vancomycin HCl 1.5 GM in Sodium Chloride 0.9% 250 ML 300 ML IVPB SCH (20:45)
[2018-11-16] MEDS: Dextrose 5 %-0.45 % NaCl 1,000 ML IV SCH (21:17)
[2018-11-16] MEDS: Potassium Chloride 20 MEQ TAB PO SCH (21:18)
[2018-11-16] MEDS: Allopurinol 300 MG TAB PO SCH (21:18)
[2018-11-16] MEDS: Metoprolol Tartrate 25 MG TAB PO SCH (21:18)
[2018-11-16] MEDS: Insulin Glargine 10 UNITS in Pre-Filled Syringe 1 EACH SC SCH (22:59)
[2018-11-17] MEDS: Dextrose 5 %-0.45 % NaCl 1,000 ML IV SCH ×3 (00:05→20:00)
[2018-11-17] MEDS: Acetaminophen 325 MG TAB PO PRN (00:17)
[2018-11-17] MEDS: Cefepime 2 GM in Sodium Chloride 0.9% 100 ML IVPB SCH ×2 (03:36→16:12)
[2018-11-17 06:09] LABS: White Blood Cell (WBC) Count 0.5 thou/uL (4.8-10.8)
[2018-11-17 06:18] LABS: ALT (SGPT) 24 U/L (8-55); AST (SGOT) 31 U/L (5-34); Albumin 2.4 g/dL (3.4-4.8); Alkaline Phosphatase 59 U/L (40-150); Anion Gap 10 mmol/L (10-20); BUN (Urea Nitrogen) 29 mg/dL (8.4-25.7); Bilirubin, Total 1.7 mg/dL (0.2-1.2); Calc. Creatinine Clearance 57 mL/min (70-130); Carbon Dioxide 25 mmol/L (23-31); Chloride 106 mmol/L (98-107); Estimated GFR-MDRD 50; Globulin 2.6 g/dL (2.4-3.5); Glucose 108 mg/dL (83-110); Potassium 3.9 mmol/L (3.5-5.1); Sodium 137 mmol/L (136-145)
[2018-11-17 08:47] LABS: Hemoglobin 7.1 g/dL (14.0-18.0); Mean Corpuscular HGB CONC 33.6 g/dL (32.0-36.0); Mean Corpuscular Volume 98.3 fL (78.0-98.0); Mean Platelet Volume 8.2 fL (7.4-10.4); Platelet Count 83 thou/uL (130-400); Platelet Morphology Comment Appears Decreased; RBC Distribution Width 12.2 % (11.5-14.5); Red Blood Cell (RBC) Count 2.17 mill/uL (4.70-6.10)
[2018-11-17] MEDS: Ondansetron PF 4 MG/2 ML Vial IVP PRN ×2 (09:55→18:24)
[2018-11-17] MEDS: Metoprolol Tartrate 25 MG TAB PO SCH ×2 (09:57→20:17)
[2018-11-17] MEDS: Potassium Chloride 20 MEQ TAB PO SCH (09:57)
[2018-11-17] MEDS: Amlodipine 5 MG TAB PO SCH (09:57)
[2018-11-17] MEDS: Insulin Glargine 10 UNITS in Pre-Filled Syringe 1 EACH SC SCH (09:58)
[2018-11-17] MEDS ORDERED: Magnesium Sulfate 4 GM in Sodium Chloride 0.9% 250 ML 250 ML IVPB SCH (10:15)
--- NOTE | 2018-11-17 10:58 | PDOC.PN ---
- Subjective Encounter Start Date: 11/17/18 Encounter Start Time: 10:30 Patient seen and examined for Neutropenic fever. Diarrhea +. Nausea +. No fever/ chills. Feels gen weak. Poro appetite. No new complaints. No overnight events - Objective Resuscitation Status - Order Detail: 11/16/18 15:47 Resuscitation Status Routine Resuscitation Status: FULL: Full Resuscitation MAR Reviewed: Yes Vital Signs & Weight: Vital Signs (12 hours) Temp Pulse Pulse Resp BP BP BP 11/17/18 09:57 80 157/67 H 11/17/18 08:00 97.7 F 80 18 157/67 H 11/17/18 04:00 99.6 F 77 12 148/68 H 11/17/18 01:42 99.5 F 75 16 123/59 L 11/17/18 00:57 99.6 F 75 16 109/57 L 11/17/18 00:14 99.8 F H 76 16 134/62 11/16/18 23:36 99.8 F H 76 16 134/62 Pulse Ox 11/17/18 09:57 11/17/18 08:00 93 L 11/17/18 04:00 93 L 11/17/18 01:42 11/17/18 00:57 11/17/18 00:14 11/16/18 23:36 94 L Weight Weight 195 lb I&O: 11/16/18 11/17/18 11/18/18 06:59 06:59 06:59 Intake Total 500 Balance 500 Result Diagrams: 11/17/18 04:44 11/17/18 04:44 Additional Labs: Accuchecks 11/17/18 11/16/18 06:18 20:26 POC Glucose 130 H 127 H Radiology Reviewed by me: Yes (CXR - no infiltrate) Phys Exam - Physical Examination Constitutional: NAD Neck: no JVD Respiratory: no wheezing, no rhonchi few rales at bases Cardiovascular: RRR, no rub no heaves/pulsations Gastrointestinal: soft, non-tender, no distention, positive bowel sounds Musculoskeletal: no edema Neurological: non-focal, moves all 4 limbs Dx/Plan - Plan DVT proph w/SCDs 1. Neutropenic fever/sepsis with acute organ dysfunction. 2. Diarrhea r/o C diff 3. Thrombocytopenia s/p platelet transfusion 4. Chronic kidney disease stage 2. 5. Hypokalemia/Hypomagnessemia. 6. 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 7. Chronic obstructive pulmonary disease, appears to be compensated. 8. Coronary artery disease/peripheral arterial disease. 9. Hypertension. 10. Diabetes mellitus type 2. 11. History of 22-cpcf-abne smoking history. 12. Abdominal aortic aneurysm. 13. Gout. 14. Benign prostatic hypertrophy. PLAN: Cont Vancomycin and Cefepime Monitor Vancomycin level. Aspirin, Plavix, and cilostazol on hold due to significant thrombocytopenia on admission requiring platelet transfusion. Cont Insulin sliding scale. Reduce Lantus dose 10 units daily AM labs Replace Magnessium Check stool studies Review of Systems - Review of Systems Respiratory: negative: Cough, Dry, Shortness of Breath, Hemoptysis, SOB with Excertion, Pleuritic Pain, Sputum, Wheezing Cardiovascular: negative: chest pain, palpitations, orthopnea, paroxysmal nocturnal dyspnea, edema, light headedness, other Gastrointestinal: negative: Nausea, Vomiting, Abdominal Pain, Diarrhea, Constipation, Melena, Hematochezia, Other - Medications/Allergies Allergies/Adverse Reactions: Allergies Allergy/AdvReac Type Severity Reaction Status Date / Time No Known Drug Allergies Allergy Verified 11/16/18 23:34 Medications: Current Medications Acetaminophen (Tylenol) 650 mg PO Q4H PRN PRN Reason: Headache/Fever/Mild Pain (1-3) Last Admin: 11/17/18 00:17 Dose: 650 mg Hydrocodone Bitart/Acetaminophen ([place] 5/325) 1 tab PO Q6H PRN PRN Reason: Moderate Pain (4-6) Albuterol/Ipratropium (Duoneb) 3 ml NEB [id number] PRN PRN Reason: SOB &/or Wheezing Allopurinol (Zyloprim) 150 mg PO HS [facility] Last Admin: 11/16/18 21:18 Dose: 150 mg Amlodipine Besylate (Norvasc) 5 mg PO DAILY [facility] Last Admin: 11/17/18 09:57 Dose: 5 mg Dextrose/Water (Dextrose 50%) 25 gm SLOW IVP PRN PRN PRN Reason: Hypoglycemia Glucagon (Glucagon) 1 mg IM PRN PRN PRN Reason: Hypoglycemia Guaifenesin (Robitussin Sf) 200 mg PO Q4H PRN PRN Reason: Cough Hydralazine HCl (Apresoline) 10 mg SLOW IVP Q4H PRN PRN Reason: SBP Greater Than 180 Dextrose/Sodium Chloride (D5 1/2 Ns) 1,000 mls @ 125 mls/hr IV .Q8H [facility] Last Admin: 11/17/18 08:52 Dose: 1,000 mls Cefepime HCl 2 gm/ Sodium (Chloride) 100 mls @ 200 mls/hr IVPB 0400,1600 [facility] Last Admin: 11/17/18 03:36 Dose: 100 mls Dextrose/Water (D5w) 1,000 mls @ 0 mls/hr IV .Q0M PRN PRN Reason: Hypoglycemia Vancomycin HCl 1.5 gm/ Sodium (Chloride) 300 mls @ 200 mls/hr IVPB 2000 [facility] Last Admin: 11/16/18 20:45 Dose: 300 mls Magnesium Sulfate 4 gm/ Sodium (Chloride) 258 mls @ 86 mls/hr IVPB ONE [facility] Stop: 11/17/18 12:00 Last Admin: 11/17/18 10:53 Dose: 258 mls Insulin Glargine 10 units/ (Miscellaneous Medication) 0.1 mls @ 0 mls/hr SC QAM [facility] Insulin Human Regular (Humulin R) 0 units SC .MILD SLIDING SCALE PRN PRN Reason: Mild Correctional Scale Insulin Human Regular (Humulin R) 0 units SC .BEDTIME SLIDING SC PRN PRN Reason: Bedtime Correctional Scale Metoprolol Tartrate (Lopressor) 12.5 mg PO BID [facility] Last Admin: 11/17/18 09:57 Dose: 12.5 mg Miscellaneous Medication (Pharmacy To Dose) 1 each IVPB PRN PRN PRN Reason: Pharmacy to dose Ondansetron HCl (Zofran) 4 mg IVP Q6H PRN PRN Reason: Nausea/Vomiting Last Admin: 11/17/18 09:55 Dose: 4 mg Senna/Docusate Sodium (Senokot S) 2 tab PO BID PRN PRN Reason: Constipation Sertraline HCl (Zoloft) 100 mg PO DAILY [facility] Last Admin: 11/17/18 09:58 Dose: 100 mg Sodium Chloride (Flush - Normal Saline) 10 ml IVF PRN PRN PRN Reason: Saline Flush
[2018-11-17] MEDS: Loperamide HCl 2 MG CAP PO PRN (14:21)
--- NOTE | 2018-11-17 17:17 | CON ---
DATE OF CONSULTATION: 11/17/2018 REASON FOR CONSULTATION: Small cell lung cancer. 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 The patient developed fever with T-max of 101.4 at home, and his family called me and I advised him to go to the ER for evaluation. The patient has since been admitted. The patient complains of ongoing cough and mild dyspnea, which is stable along with nausea and diarrhea. He denies anymore fevers since admission to the hospital. Chest x-ray in the ER did not show any evidence of pneumonia, but did show interval improvement in hemithoracic pleural-parenchymal opacity. The patient was recently admitted to the hospital and received a Pleurx catheter, which has only been draining minimal fluid at this time. The patient is currently on cefepime and vancomycin, and white blood cells are 0.5. The patient also presented with a platelet count of 7 and has since been transfused 2 units of platelets with improvement in his counts to 83. The patient otherwise denies any pain at the Pleurx site or port site. REVIEW OF SYSTEMS: 10-point review of systems negative except as per HPI. PAST MEDICAL HISTORY: Small cell lung cancer, CKD, COPD, aortic aneurysm, peripheral vascular disease, diabetes, hypertension, gout, coronary artery disease, and hyperlipidemia. PAST SURGICAL HISTORY: Right common iliac stent placement, right carotid endarterectomy, coronary stent placement, and MediPort placement. ALLERGIES: NO KNOWN DRUG ALLERGIES. CURRENT MEDICATIONS: Reviewed. SOCIAL HISTORY: Heavy smoking history. No current alcohol or drug use. FAMILY HISTORY: Noncontributory. PHYSICAL EXAMINATION: VITAL SIGNS: Temperature 98.0, pulse 73, blood pressure 157/67, respirations 18, and saturating 93% on 1 L by nasal cannula. GENERAL: The patient is lying in bed, in no acute distress. HEENT: Normocephalic and atraumatic. No scleral icterus. CARDIOVASCULAR: S1 and S2 with regular rate and rhythm. LUNGS: There are decreased breath sounds over the left posterior lung field. There is no accessory muscle use. Respirations are nonlabored. ABDOMEN: Soft, nondistended, and nontender. EXTREMITIES: No edema. LYMPHATICS: No palpable lymphadenopathy. NEUROLOGIC: Cranial nerves II through XII are grossly intact. PSYCHIATRIC: Awake, alert, and oriented x3. LABORATORY DATA: White blood cells 0.5; hemoglobin 9.2 on admission, currently 7.1; platelets 7 on admission, currently 83. Sodium 137, potassium 3.9, BUN 29, creatinine 1.39, glucose 130, magnesium 1.0, and total bilirubin 1.7. IMAGING DATA: Chest x-ray done on November 16, 2018, shows cardiomediastinal silhouette, unchanged in appearance compared to November 11, 2018. Vascular calcification involving the aortic arch. Left subclavian implanted port is re-demonstrated in similar position. Left-sided chest tube is again seen in similar position. Persistent left basilar pleural-parenchymal opacity, somewhat improved left hemithoracic airspace disease and no evidence for pneumothorax. ASSESSMENT AND PLAN: A 78-year-old male with small cell lung cancer, presenting with neutropenic fever. 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 The patient's thrombocytopenia has improved from 7 to 83 with 2 units of platelets, and his antiplatelets were held on admission. These may not be restarted as long as platelets remain above 50. The patient's white blood cells are currently 0.5, and he is on cefepime for neutropenic fever. Due to the patient's PleurX catheter placement with lack of draining his fluid, there is concern for possible infection and could be a pneumonia even though x-ray does not show it due to large airspace disease from his cancer. For this reason, he has been started on vancomycin. I recommend continuing antibiotics at this time, and I will start Neupogen daily until count recovery with an ANC of 1.0. The patient has also had diarrhea, and stool studies have been sent. I agree with Dr. Diaz to check the patient's pleural fluid for signs of infection as well with culture. We will follow along with this patient with you. Thank you for this consult. Job ID: [id number]
[2018-11-17] MEDS: Allopurinol 300 MG TAB PO SCH (20:17)
[2018-11-17] MEDS: Vancomycin HCl 1.5 GM in Sodium Chloride 0.9% 250 ML 300 ML IVPB SCH (20:17)
[2018-11-18] MEDS: Acetaminophen 325 MG TAB PO PRN ×4 (00:31→20:45)
[2018-11-18] MEDS: Cefepime 2 GM in Sodium Chloride 0.9% 100 ML IVPB SCH ×2 (04:12→17:38)
[2018-11-18] MEDS: Dextrose 5 %-0.45 % NaCl 1,000 ML IV SCH ×3 (04:17→14:24)
[2018-11-18 04:30] LABS: Mean Corpuscular HGB CONC 33.5 g/dL (32.0-36.0); Mean Corpuscular Volume 98.5 fL (78.0-98.0); RBC Distribution Width 12.4 % (11.5-14.5); Red Blood Cell (RBC) Count 2.12 mill/uL (4.70-6.10); White Blood Cell (WBC) Count 0.4 thou/uL (4.8-10.8)
[2018-11-18 04:45] LABS: ALT (SGPT) 27 U/L (8-55); AST (SGOT) 31 U/L (5-34); Albumin 2.2 g/dL (3.4-4.8); Alkaline Phosphatase 60 U/L (40-150); Anion Gap 12 mmol/L (10-20); BUN (Urea Nitrogen) 23 mg/dL (8.4-25.7); Bilirubin, Total 0.5 mg/dL (0.2-1.2); Calc. Creatinine Clearance 58 mL/min (70-130); Calcium 7.5 mg/dL (7.8-10.44); Carbon Dioxide 23 mmol/L (23-31); Chloride 106 mmol/L (98-107); Estimated GFR-MDRD 51; Globulin 2.6 g/dL (2.4-3.5); Glucose 105 mg/dL (83-110); Magnesium 1.7 mg/dL (1.6-2.6); Phosphorus 2.7 mg/dL (2.3-4.7); Potassium 3.5 mmol/L (3.5-5.1); Protein, Total 4.8 g/dL (5.8-8.1); Sodium 137 mmol/L (136-145)
[2018-11-18 04:58] LABS: Mean Platelet Volume 8.1 fL (7.4-10.4); Platelet Count 61 thou/uL (130-400); Platelet Morphology Comment Appears Decreased
[2018-11-18] MEDS: Amlodipine 5 MG TAB PO SCH (09:43)
[2018-11-18] MEDS: Metoprolol Tartrate 25 MG TAB PO SCH ×2 (09:44→20:09)
[2018-11-18] MEDS: Loperamide HCl 2 MG CAP PO PRN ×2 (09:46→12:11)
[2018-11-18] MEDS: Insulin Glargine 10 UNITS in Pre-Filled Syringe 1 EACH SC SCH (09:46)
--- NOTE | 2018-11-18 11:32 | PDOC.PN ---
- Subjective Encounter Start Date: 11/18/18 Encounter Start Time: 08:00 Patient seen and examined for Neutropenic fever. Feels gen weak. Diarrhea slowing down. No new complaints. No overnight events - Objective Resuscitation Status - Order Detail: 11/16/18 15:47 Resuscitation Status Routine Resuscitation Status: FULL: Full Resuscitation MAR Reviewed: Yes Vital Signs & Weight: Vital Signs (12 hours) Temp Pulse Resp BP BP BP BP 11/18/18 09:43 81 165/66 H 11/18/18 07:52 11/18/18 07:50 98.8 F 81 18 165/66 H 11/18/18 04:00 99.0 F 71 16 132/63 11/18/18 00:00 100.3 F H 88 16 151/68 H Pulse Ox 11/18/18 09:43 11/18/18 07:52 93 L 11/18/18 07:50 93 L 11/18/18 04:00 92 L 11/18/18 00:00 92 L Weight Weight 195 lb I&O: 11/17/18 11/18/18 11/19/18 06:59 06:59 06:59 Intake Total 500 2095 Balance 500 2095 Result Diagrams: 11/18/18 04:09 11/18/18 04:09 Additional Labs: Accuchecks 11/18/18 11/17/18 11/17/18 05:45 20:17 16:08 POC Glucose 90 101 188 H 11/17/18 11:34 POC Glucose 100 Phys Exam - Physical Examination Constitutional: NAD Respiratory: no wheezing, no rhonchi Cardiovascular: RRR, no rub Gastrointestinal: soft, non-tender, positive bowel sounds Musculoskeletal: no edema Neurological: moves all 4 limbs Dx/Plan - Plan DVT proph w/SCDs 1. Neutropenic fever/sepsis with acute organ dysfunction. 2. Diarrhea - stool w/u negative 3. Thrombocytopenia s/p platelet transfusion 4. Chronic kidney disease stage 2. 5. Hypokalemia/Hypomagnessemia - replaced 6. 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 7. Chronic obstructive pulmonary disease, appears to be compensated. 8. Coronary artery disease/peripheral arterial disease. 9. Hypertension. 10. Diabetes mellitus type 2. 11. History of [id number] smoking history. 12. Abdominal aortic aneurysm. 13. Gout. 14. Benign prostatic hypertrophy. PLAN: Cont Atbx (Vancomycin and Cefepime) Aspirin, Plavix, and cilostazol on hold due to significant thrombocytopenia. Cont Insulin sliding scale with current dose of Insulin AM labs Cont other meds as below Microbiology 11/17/18 09:50 Stool Stool Lactoferrin - Final 11/17/18 09:50 Stool Shiga Toxin Test - Final 11/17/18 09:50 Stool Escherichia coli 0157 Culture - Final 11/17/18 09:50 Stool C. difficile GDH Antigen & Toxins - Final 11/16/18 15:37 Nasal swab Influenza Types A,B Direct EIA - Final 11/16/18 13:26 Urine voided Urine Culture - Final NO GROWTH AT 48 HOURS 11/17/18 13:45 Pleural fluid Body Fluid Culture - Preliminary 11/17/18 09:50 Stool Stool Culture - Preliminary 11/17/18 09:50 Stool Yeast species 11/16/18 13:26 Urine voided Urine Culture - Preliminary NO GROWTH AT 24 HOURS 11/16/18 12:43 Venous blood - Left Arm Blood Culture - Preliminary Specimen has been received and culture in progress. No Growth to date. 11/16/18 12:39 Venous blood - Left Arm Blood Culture - Preliminary Specimen has been received and culture in progress. No Growth to date. Laboratory Tests 11/17/18 04:44 Magnesium 1.0 L Review of Systems - Review of Systems Respiratory: negative: Cough, Dry, Shortness of Breath, Hemoptysis, SOB with Excertion, Pleuritic Pain, Sputum, Wheezing Cardiovascular: negative: chest pain, palpitations, orthopnea, paroxysmal nocturnal dyspnea, edema, light headedness, other - Medications/Allergies Allergies/Adverse Reactions: Allergies Allergy/AdvReac Type Severity Reaction Status Date / Time No Known Drug Allergies Allergy Verified 11/16/18 23:34 Medications: Current Medications Acetaminophen (Tylenol) 650 mg PO Q4H PRN PRN Reason: Headache/Fever/Mild Pain (1-3) Last Admin: 11/18/18 04:22 Dose: 650 mg Hydrocodone Bitart/Acetaminophen ([place] 5/325) 1 tab PO Q6H PRN PRN Reason: Moderate Pain (4-6) Albuterol/Ipratropium (Duoneb) 3 ml NEB [id number] PRN PRN Reason: SOB &/or Wheezing Allopurinol (Zyloprim) 150 mg PO HS [facility] Last Admin: 11/17/18 20:17 Dose: 150 mg Amlodipine Besylate (Norvasc) 5 mg PO DAILY [facility] Last Admin: 11/18/18 09:43 Dose: 5 mg Dextrose/Water (Dextrose 50%) 25 gm SLOW IVP PRN PRN PRN Reason: Hypoglycemia Glucagon (Glucagon) 1 mg IM PRN PRN PRN Reason: Hypoglycemia Guaifenesin (Robitussin Sf) 200 mg PO Q4H PRN PRN Reason: Cough Hydralazine HCl (Apresoline) 10 mg SLOW IVP Q4H PRN PRN Reason: SBP Greater Than 180 Dextrose/Sodium Chloride (D5 1/2 Ns) 1,000 mls @ 125 mls/hr IV .Q8H [facility] Last Admin: 11/18/18 09:46 Dose: Not Given Cefepime HCl 2 gm/ Sodium (Chloride) 100 mls @ 200 mls/hr IVPB 0400,1600 [facility] Last Admin: 11/18/18 04:12 Dose: 100 mls Dextrose/Water (D5w) 1,000 mls @ 0 mls/hr IV .Q0M PRN PRN Reason: Hypoglycemia Vancomycin HCl 1.5 gm/ Sodium (Chloride) 300 mls @ 200 mls/hr IVPB 2000 [facility] Last Admin: 11/17/18 20:17 Dose: 300 mls Insulin Glargine 10 units/ (Miscellaneous Medication) 0.1 mls @ 0 mls/hr SC QAM [facility] Last Admin: 11/18/18 09:46 Dose: 0.1 mls Insulin Human Regular (Humulin R) 0 units SC .MILD SLIDING SCALE PRN PRN Reason: Mild Correctional Scale Last Admin: 11/17/18 16:12 Dose: 2 unit Insulin Human Regular (Humulin R) 0 units SC .BEDTIME SLIDING SC PRN PRN Reason: Bedtime Correctional Scale Loperamide HCl (Imodium) 2 mg PO PRN PRN PRN Reason: Diarrhea/Loose Stools Last Admin: 11/18/18 09:46 Dose: 2 mg Metoprolol Tartrate (Lopressor) 12.5 mg PO BID [facility] Last Admin: 11/18/18 09:44 Dose: 12.5 mg Miscellaneous Medication (Pharmacy To Dose) 1 each IVPB PRN PRN PRN Reason: Pharmacy to dose Ondansetron HCl (Zofran) 4 mg IVP Q6H PRN PRN Reason: Nausea/Vomiting Last Admin: 11/17/18 18:24 Dose: 4 mg Senna/Docusate Sodium (Senokot S) 2 tab PO BID PRN PRN Reason: Constipation Sertraline HCl (Zoloft) 100 mg PO DAILY [facility] Last Admin: 11/18/18 09:46 Dose: 100 mg Sodium Chloride (Flush - Normal Saline) 10 ml IVF PRN PRN PRN Reason: Saline Flush Tbo-Filgrastim (Granix) 480 mcg SC 1400 [facility] Last Admin: 11/17/18 14:22 Dose: 480 mcg
[2018-11-18] MEDS: Vancomycin HCl 1.5 GM in Sodium Chloride 0.9% 250 ML 300 ML IVPB SCH (20:05)
[2018-11-18 20:07] LABS: Hemoglobin 6.9 g/dL (14.0-18.0); Mean Corpuscular Hemoglobin 33.2 pg (27.0-31.0); Mean Corpuscular Volume 97.7 fL (78.0-98.0); Mean Platelet Volume 8.1 fL (7.4-10.4); Platelet Count 47 thou/uL (130-400); RBC Distribution Width 12.2 % (11.5-14.5); Red Blood Cell (RBC) Count 2.08 mill/uL (4.70-6.10); White Blood Cell (WBC) Count 0.3 thou/uL (4.8-10.8)
[2018-11-18] MEDS: Allopurinol 300 MG TAB PO SCH (20:09)
[2018-11-18 20:32] LABS: Platelet Morphology Comment Appears Decreased
[2018-11-18 20:36] LABS: Troponin I 0.038 ng/mL (< 0.028)
[2018-11-19] MEDS: Dextrose 5 %-0.45 % NaCl 1,000 ML IV SCH (00:02)
[2018-11-19] MEDS: Cefepime 2 GM in Sodium Chloride 0.9% 100 ML IVPB SCH ×2 (04:51→16:28)
[2018-11-19 05:40] LABS: White Blood Cell (WBC) Count 0.5 thou/uL (4.8-10.8)
[2018-11-19 05:43] LABS: ALT (SGPT) 36 U/L (8-55); AST (SGOT) 30 U/L (5-34); Albumin 2.2 g/dL (3.4-4.8); Alkaline Phosphatase 70 U/L (40-150); Anion Gap 10 mmol/L (10-20); BUN (Urea Nitrogen) 19 mg/dL (8.4-25.7); Bilirubin, Total 0.5 mg/dL (0.2-1.2); Calc. Creatinine Clearance 62 mL/min (70-130); Calcium 7.5 mg/dL (7.8-10.44); Carbon Dioxide 24 mmol/L (23-31); Chloride 106 mmol/L (98-107); Estimated GFR-MDRD 55; Globulin 2.5 g/dL (2.4-3.5); Glucose 86 mg/dL (83-110); Magnesium 1.3 mg/dL (1.6-2.6); Protein, Total 4.7 g/dL (5.8-8.1); Sodium 137 mmol/L (136-145)
[2018-11-19 05:45] LABS: Potassium 2.9 mmol/L (3.5-5.1)
[2018-11-19 05:52] LABS: Hemoglobin 8.3 g/dL (14.0-18.0); Mean Corpuscular HGB CONC 31.7 g/dL (32.0-36.0); Mean Corpuscular Volume 97.7 fL (78.0-98.0); Mean Platelet Volume 8.4 fL (7.4-10.4); Platelet Count 45 thou/uL (130-400); Platelet Morphology Comment Appears Decreased; RBC Distribution Width 12.6 % (11.5-14.5); Red Blood Cell (RBC) Count 2.68 mill/uL (4.70-6.10)
[2018-11-19] MEDS ORDERED: [UNRECOGNIZED DRUG - OTHER] IVPB SCH (07:00)
[2018-11-19] MEDS ORDERED: Potassium Chloride 20 MEQ/100 ML PREMIX BAG IVPB SCH (07:00)
[2018-11-19] MEDS ORDERED: Potassium Chloride 20 MEQ TAB PO SCH (07:00)
[2018-11-19] MEDS ORDERED: ADMIXTURE FEE CHEMO IVPB SCH (07:00)
[2018-11-19] MEDS ORDERED: MAGNESIUM SULFATE IVPB SCH (07:00)
[2018-11-19] MEDS: D5 1/2 NS w/20 mEq KCL 1,000 ML IV SCH ×2 (08:12→14:56)
[2018-11-19] MEDS: Amlodipine 5 MG TAB PO SCH (08:13)
[2018-11-19] MEDS: Potassium Chloride 10 MEQ TAB PO SCH ×3 (08:13→16:28)
[2018-11-19] MEDS: Metoprolol Tartrate 25 MG TAB PO SCH ×2 (08:14→21:00)
[2018-11-19] MEDS: Insulin Glargine 10 UNITS in Pre-Filled Syringe 1 EACH SC SCH (08:14)
[2018-11-19] MEDS: Ondansetron PF 4 MG/2 ML Vial IVP PRN (09:44)
--- NOTE | 2018-11-19 16:20 | PQF ---
CLINICAL DOCUMENTATION IMPROVEMENT CLARIFICATION FORM: ICD-10 Updated PLEASE DO AN ADDENDUM TO THE PROGRESS NOTE WITH ANY DOCUMENTATION UPDATES OR ADDITIONS AND CARRY THROUGH TO DC SUMMARY. THANK YOU. DATE: 11/19/18 ATTN: Dr. Diaz Please exercise your independent, professional judgment in responding to the clarification form. Clinical indicators are provided on the bottom of this form for your review Please check appropriate box(s): Pancytopenia due to: [ ] Chemotherapy/antineoplastic drugs [ ] Other drug-induced (please specify if known): [ ] Other diagnosis [ ] Unable to determine In addition, please specify: Present on Admission (POA): [ ] Yes [ ] No [ ] Unable to determine For continuity of documentation, please document condition throughout progress notes and discharge summary. Thank You. CLINICAL INDICATORS - SIGNS / SYMPTOMS / LABS H&P 11/16: Since yesterday, he started spiking fever up to 102 degrees F. He also felt generally weak and fatigued. Significant neutropenia with WBC 0.4. Thrombocytopenia w/ platelet of 7, probably secondary to recent chemotherapy. 11/16 11/17 LAB Red Blood Count 2.85 2.17 ONCOLOGY 11/17 : White blood cells 0.5; hemoglobin 9.2 on admission, currently 7.1 platelets 7 on admission, currently 83 RISKS: H&P: Discharged from this facility four days ago with diagnosis of recurrent left-sided pleural effusion requiring PleurX catheter placement. Neutropenic fever/sepsis with acute organ dysfunction. Oncology 11/17: 78 yo with small cell lung cancer. 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 TREATMENT: Order Nursing 11/16: 2 units of Platelets. Order Nursing 11/18: Transfuse 1 unit pc Thank you, Marissa (This form is maintained as a part of the permanent medical record) 2014 [employer]. All Rights Reserved Marissa Scales RN, BSN [email or web address] Office: [phone] [facility]
[2018-11-19] MEDS ORDERED: Calcium Carbonate 500 MG ChewTAB PO PRN (18:27)
[2018-11-19] MEDS ORDERED: Mag-Al 1200 mg/1200 mg/30 ML UDCUP PO PRN (18:27)
--- NOTE | 2018-11-19 18:35 | PDOC.PN ---
- Subjective Encounter Start Date: 11/19/18 Encounter Start Time: 16:00 Patient seen and examined for Neutropenic fever. No new complaints. Overnight events noted. Transferred to tele due to Afib with RVR. Now in SR. - Objective Resuscitation Status - Order Detail: 11/16/18 15:47 Resuscitation Status Routine Resuscitation Status: FULL: Full Resuscitation MAR Reviewed: Yes Vital Signs & Weight: Vital Signs (12 hours) Temp Pulse Resp BP BP BP Pulse Ox 11/19/18 16:56 98.5 F 78 18 140/63 97 11/19/18 12:35 98.1 F 71 16 122/58 L 96 11/19/18 08:20 95 11/19/18 08:13 80 144/68 H 11/19/18 08:08 98.7 F 80 14 144/68 H 95 Weight Weight 195 lb I&O: 11/18/18 11/19/18 11/20/18 06:59 06:59 06:59 Intake Total 2095 2500 1310 Output Total 75 100 Balance 2095 2425 1210 Result Diagrams: 11/19/18 04:50 11/19/18 04:50 Additional Labs: Accuchecks 11/19/18 11/19/18 11/19/18 16:40 11:02 06:17 POC Glucose 107 77 90 11/18/18 20:30 POC Glucose 114 H EKG Reviewed by me: Yes (Tele SR) Phys Exam - Physical Examination Constitutional: NAD Neck: no JVD Respiratory: no wheezing, no rales, no rhonchi dec AE at bases, Symmetrical Cardiovascular: RRR, no rub Gastrointestinal: soft, non-tender, no distention, positive bowel sounds Musculoskeletal: no edema Neurological: non-focal, moves all 4 limbs Psychiatric: normal affect, A&O x 3 Dx/Plan - Plan DVT proph w/SCDs 1. Neutropenic fever/sepsis with acute organ dysfunction. 2. Diarrhea - stool w/u negative 3. Thrombocytopenia s/p platelet transfusion 4. Transient Afib with RVR - now in SR. Not a candidate for anticoagulation. 5. Hypokalemia/Hypomagnessemia 6. 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 7. Chronic obstructive pulmonary disease, appears to be compensated. 8. Coronary artery disease/peripheral arterial disease. 9. Hypertension. 10. Diabetes mellitus type 2. 11. History of [id number] smoking history. 12. Abdominal aortic aneurysm. 13. Gout. 14. Benign prostatic hypertrophy. 15. Elevated troponins due to demand ischemia 16. Pancytopenia due to chemotherapy. 17. Chronic kidney disease stage 2. PLAN: Cont Atbx (Vancomycin and Cefepime) Increase Metoprolol to 25 mg BID DC Amlodipine Stool w/u negative Consult ID Aspirin, Plavix, and cilostazol on hold per Oncology. Cont Insulin sliding scale with current dose of Insulin. AM labs Cont other meds as below Laboratory Tests 11/18/18 11/19/18 19:50 04:50 Magnesium 1.3 L Troponin I 0.038 H Review of Systems - Review of Systems Respiratory: Cough, Sputum Cardiovascular: negative: chest pain, palpitations, orthopnea, paroxysmal nocturnal dyspnea, edema, light headedness, other Gastrointestinal: negative: Nausea, Vomiting, Abdominal Pain, Diarrhea, Constipation, Melena, Hematochezia, Other - Medications/Allergies Allergies/Adverse Reactions: Allergies Allergy/AdvReac Type Severity Reaction Status Date / Time No Known Drug Allergies Allergy Verified 11/16/18 23:34 Medications: Current Medications Acetaminophen (Tylenol) 650 mg PO Q4H PRN PRN Reason: Headache/Fever/Mild Pain (1-3) Last Admin: 11/18/18 20:45 Dose: 650 mg Hydrocodone Bitart/Acetaminophen ([place] 5/325) 1 tab PO Q6H PRN PRN Reason: Moderate Pain (4-6) Al Hydroxide/Mg Hydroxide (Maalox) 30 ml PO Q6H PRN PRN Reason: Heartburn or Indigestion Albuterol/Ipratropium (Duoneb) 3 ml NEB [id number] PRN PRN Reason: SOB &/or Wheezing Allopurinol (Zyloprim) 150 mg PO HS [facility] Last Admin: 11/18/18 20:09 Dose: 150 mg Calcium Carbonate (Tums) 1,000 mg PO Q4H PRN PRN Reason: Heartburn or Indigestion Dextrose/Water (Dextrose 50%) 25 gm SLOW IVP PRN PRN PRN Reason: Hypoglycemia Glucagon (Glucagon) 1 mg IM PRN PRN PRN Reason: Hypoglycemia Guaifenesin (Robitussin Sf) 200 mg PO Q4H PRN PRN Reason: Cough Hydralazine HCl (Apresoline) 10 mg SLOW IVP Q4H PRN PRN Reason: SBP Greater Than 180 Cefepime HCl 2 gm/ Sodium (Chloride) 100 mls @ 200 mls/hr IVPB 0400,1600 [facility] Last Admin: 11/19/18 16:28 Dose: 100 mls Dextrose/Water (D5w) 1,000 mls @ 0 mls/hr IV .Q0M PRN PRN Reason: Hypoglycemia Vancomycin HCl 1.5 gm/ Sodium (Chloride) 300 mls @ 200 mls/hr IVPB 2000 [facility] Last Admin: 11/18/18 20:05 Dose: 300 mls Insulin Glargine 10 units/ (Miscellaneous Medication) 0.1 mls @ 0 mls/hr SC QAM [facility] Last Admin: 11/19/18 08:14 Dose: 0.1 mls Potassium Chloride/Dextrose/Sod Cl (D5 1/2 Ns W/20 Meq Kcl) 1,000 mls @ 75 mls/ hr IV .[id number] [facility] Last Admin: 11/19/18 14:56 Dose: 1,000 mls Insulin Human Regular (Humulin R) 0 units SC .MILD SLIDING SCALE PRN PRN Reason: Mild Correctional Scale Last Admin: 11/17/18 16:12 Dose: 2 unit Insulin Human Regular (Humulin R) 0 units SC .BEDTIME SLIDING SC PRN PRN Reason: Bedtime Correctional Scale Loperamide HCl (Imodium) 2 mg PO PRN PRN PRN Reason: Diarrhea/Loose Stools Last Admin: 11/18/18 12:11 Dose: 2 mg Metoprolol Tartrate (Lopressor) 25 mg PO BID [facility] Miscellaneous Medication (Pharmacy To Dose) 1 each IVPB PRN PRN PRN Reason: Pharmacy to dose Ondansetron HCl (Zofran) 4 mg IVP Q6H PRN PRN Reason: Nausea/Vomiting Last Admin: 11/19/18 09:44 Dose: 4 mg Pantoprazole Sodium (Protonix) 40 mg PO DAILY [facility] Pantoprazole Sodium (Protonix) 40 mg PO ONE ONE Stop: 11/19/18 18:29 Senna/Docusate Sodium (Senokot S) 2 tab PO BID PRN PRN Reason: Constipation Sertraline HCl (Zoloft) 100 mg PO DAILY [facility] Last Admin: 11/19/18 08:15 Dose: 100 mg Sodium Chloride (Flush - Normal Saline) 10 ml IVF PRN PRN PRN Reason: Saline Flush Tbo-Filgrastim (Granix) 480 mcg SC 1400 [facility] Last Admin: 11/19/18 14:55 Dose: 480 mcg
[2018-11-19] MEDS: Vancomycin HCl 1.5 GM in Sodium Chloride 0.9% 250 ML 300 ML IVPB SCH (20:59)
[2018-11-19] MEDS: Allopurinol 300 MG TAB PO SCH (21:00)
[2018-11-19] MEDS: Famotidine 20 MG TAB PO SCH (21:00)
--- NOTE | 2018-11-19 21:20 | CON ---
DATE OF CONSULTATION: 11/19/2018 REASON FOR CONSULTATION: Neutropenic fever. HISTORY OF PRESENT ILLNESS: A 78-year-old patient who has a history of small cell lung cancer, hypertension, and type 2 diabetes mellitus, who had been admitted in mid September of 2018 with worsening dyspnea. At the time a CT demonstrated lung mass in the left side with a pleural effusion. He was discharged on prednisone and doxycycline, had a pleural fluid analysis with cytology, which demonstrated positive for small cell lung cancer and he was readmitted on November 12, because of worsening left-sided pleural effusion and had a PleurX catheter placed on the left side for management of malignant effusion with drainage of 3 L of blood tinged fluid. He also had a MediPort placed in the left subclavian location in preparation for chemotherapy. The patient was given his first course of chemotherapy 2 weeks before admission and then he developed fever today before admission up to 102, general malaise and a productive cough with purulent sputum. No hemoptysis. No headaches, visual symptoms, sore throat, odynophagia, dysphagia. No back pain, no abdominal pain or diarrhea. No genitourinary symptoms. No joint symptoms. No skin rash. On arrival his temperature was 99.2, respirations 20, BP 150/70, O2 saturation 99%. WBC count 0.4. The patient has been started on broad-spectrum coverage. He is currently in the telemetry area. He is awake and oriented. PAST MEDICAL HISTORY: 1. COPD. 2. Renal insufficiency stage III. Abdominal aortic aneurysm. 3. Peripheral vascular disease. 4. Type 2 diabetes. 5. Hypertension. 6. Coronary artery disease with prior stenting. 7. Gout. 8. Dyslipidemia. 9. 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 SURGICAL HISTORY: 1. Stenting of the common iliac arteries. 2. Thoracentesis. 3. Carotid endarterectomy. 4. MediPort placement. ALLERGIES: NONE. SOCIAL HISTORY: Former smoker. FAMILY HISTORY: Noncontributory. CURRENT MEDS: P.r.n. medications; 1. Zyloprim. 2. Norvasc. 3. Cefepime. 4. Glucagon. 5. Hydralazine. 6. Insulin. 7. Loperamide. 8. Metoprolol. 9. Ondansetron. 10. Zoloft. 11. Filgrastim. 12. Vancomycin. PHYSICAL EXAMINATION: VITAL SIGNS: T-max 100.5, currently 98.1. He had a temp of 100.3 on November 18 and this is the 4th day of admission. SKIN: Shows the healing left port insertion site. He has a PleurX cardiac catheter in the left anterior chest wall region with normal-appearing exit site. No lymphadenopathy. Ocular movements conjugate. Oral cavity moist. Numerous teeth in place with quite a bit of decay. NECK: Supple. No jugular venous distention. LUNGS: With diminished breath sounds on the left side. HEART: S1 and S2. Regular rate without murmurs. No S3 or S4. ABDOMEN: Soft, not distended or tender. No ascites. No bladder distention. No joint inflammatory activity. Pulses 1+ in dorsalis pedis. Plantar responses are flexor. LABORATORY DATA: White cell count of 0.4, now 0.5, hemoglobin 8.3, platelets 45,000. Sodium 137, creatinine 1.27, GFR 55, potassium 2.9. Liver profile normal, including normal bilirubin. Magnesium 1.3, albumin 2.2. Urinalysis was normal. The pleural fluid pH 7.8, glucose in the pleura was 95. Microbiology with yeast, stool culture, C difficile in stool was negative. Pleural fluid culture from November 17 within moderate wbcs, no growth at 48 hours. Two sets of blood cultures no growth from November 16. Influenza A and B were negative. ASSESSMENT: 1. Small cell lung cancer, recent chemotherapy with neutropenia and fever. 2. PleurX catheter for management of malignant pleural effusion. Waiting on response to chemotherapy. DISCUSSION: The patient still quite neutropenic at the 4th day after admission, is still having intermittent fevers and may have to initiate antifungal therapy. We will check his respiratory virus PCR since there is influenza activity in the community. Job ID: [id number]
[2018-11-20] MEDS: Cefepime 2 GM in Sodium Chloride 0.9% 100 ML IVPB SCH ×2 (04:22→16:03)
[2018-11-20] MEDS: D5 1/2 NS w/20 mEq KCL 1,000 ML IV SCH ×2 (04:23→16:52)
[2018-11-20 06:37] LABS: Hemoglobin 8.3 g/dL (14.0-18.0); Mean Corpuscular HGB CONC 32.9 g/dL (32.0-36.0); Mean Corpuscular Volume 97.4 fL (78.0-98.0); Mean Platelet Volume 8.2 fL (7.4-10.4); Platelet Count 38 thou/uL (130-400); RBC Distribution Width 12.6 % (11.5-14.5)
[2018-11-20 06:46] LABS: Anion Gap 11 mmol/L (10-20); BUN (Urea Nitrogen) 19 mg/dL (8.4-25.7); Calc. Creatinine Clearance 62 mL/min (70-130); Carbon Dioxide 22 mmol/L (23-31); Chloride 110 mmol/L (98-107); Estimated GFR-MDRD 54; Glucose 63 mg/dL (83-110); Magnesium 1.9 mg/dL (1.6-2.6); Potassium 3.5 mmol/L (3.5-5.1); Sodium 139 mmol/L (136-145)
[2018-11-20 06:49] LABS: Phosphorus 1.8 mg/dL (2.3-4.7)
[2018-11-20 06:50] LABS: Band 12 % (5-11); Dohle Bodies SLIGHT; Lymphocytes 47 % (21-51); MDiff Complete? YES; Monocytes 18 % (0-10); Neutrophil 23 % (42-75); Platelet Morphology Comment Appears Decreased
[2018-11-20] MEDS ORDERED: Potassium Phosphate 9 MMOL in Sodium Chloride 0.9% 100 ML IVPB SCH (07:15)
[2018-11-20] MEDS: K-Phos Neutral 250 MG TAB PO SCH ×3 (09:33→16:01)
[2018-11-20] MEDS: Famotidine 20 MG TAB PO SCH ×2 (09:34→20:25)
[2018-11-20] MEDS: Metoprolol Tartrate 25 MG TAB PO SCH ×2 (09:34→20:25)
[2018-11-20 14:23] VITALS: BMI 28.5
[2018-11-20 19:19] LABS: Vancomycin, Trough 28.7 ug/mL
[2018-11-20] MEDS: Vancomycin HCl 1.5 GM in Sodium Chloride 0.9% 250 ML 300 ML IVPB SCH (20:00)
[2018-11-20] MEDS: Allopurinol 300 MG TAB PO SCH (20:24)
--- NOTE | 2018-11-20 21:46 | PDOC.PN ---
- Subjective Encounter Start Date: 11/20/18 Encounter Start Time: 11:30 Patient seen and examined for Neutropenic fever. Diarrhea improving. No new complaints. No overnight events - Objective Resuscitation Status - Order Detail: 11/16/18 15:47 Resuscitation Status Routine Resuscitation Status: FULL: Full Resuscitation MAR Reviewed: Yes Vital Signs & Weight: Vital Signs (12 hours) Temp Pulse Resp BP Pulse Ox 11/20/18 16:05 98.1 F 68 16 135/63 94 L 11/20/18 11:35 98.7 F 64 17 129/60 94 L Weight Admit Weight 195 lb Weight 198 lb 12.8 oz I&O: 11/19/18 11/20/18 11/21/18 06:59 06:59 06:59 Intake Total 2500 1670 1360 Output Total 75 100 240 Balance 2425 1570 1120 Result Diagrams: 11/21/18 05:03 11/21/18 05:03 Additional Labs: Accuchecks 11/20/18 11/20/18 11/20/18 20:27 16:54 05:55 POC Glucose 122 H 124 H 68 L EKG Reviewed by me: Yes (Tele SR) Phys Exam - Physical Examination Constitutional: NAD Respiratory: no wheezing, no rhonchi Cardiovascular: RRR, no rub Gastrointestinal: soft, positive bowel sounds Musculoskeletal: no edema Neurological: moves all 4 limbs Dx/Plan - Plan 1. Neutropenic fever/sepsis with acute organ dysfunction. 2. Diarrhea - stool w/u negative 3. Thrombocytopenia s/p platelet transfusion 4. Transient Afib with RVR prob due to electrolyte abn - now in SR. Not a candidate for anticoagulation. 5. Hypokalemia/Hypomagnessemia/Hypophosphatemia 6. 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 7. Chronic obstructive pulmonary disease, appears to be compensated. 8. Coronary artery disease/peripheral arterial disease. 9. Hypertension. 10. Diabetes mellitus type 2. 11. History of [id number] smoking history. 12. Abdominal aortic aneurysm. 13. Gout. 14. Benign prostatic hypertrophy. 15. Elevated troponins due to demand ischemia 16. Pancytopenia due to chemotherapy. 17. Chronic kidney disease stage 2. PLAN: Cont Atbx (Vancomycin and Cefepime) Cont Metoprolol 25 mg BID Replace Phosphorus Stool w/u negative Resp viral panel negative Aspirin, Plavix, and cilostazol on hold per Oncology. Cont Insulin sliding scale with current dose of Insulin. AM labs Cont other meds as below Transfer to medical ID/Oncology following Review of Systems - Review of Systems Respiratory: negative: Cough, Dry, Shortness of Breath, Hemoptysis, SOB with Excertion, Pleuritic Pain, Sputum, Wheezing Cardiovascular: negative: chest pain, palpitations, orthopnea, paroxysmal nocturnal dyspnea, edema, light headedness, other - Medications/Allergies Allergies/Adverse Reactions: Allergies Allergy/AdvReac Type Severity Reaction Status Date / Time No Known Drug Allergies Allergy Verified 11/16/18 23:34 Medications: Current Medications Acetaminophen (Tylenol) 650 mg PO Q4H PRN PRN Reason: Headache/Fever/Mild Pain (1-3) Last Admin: 11/18/18 20:45 Dose: 650 mg Hydrocodone Bitart/Acetaminophen ([place] 5/325) 1 tab PO Q6H PRN PRN Reason: Moderate Pain (4-6) Al Hydroxide/Mg Hydroxide (Maalox) 30 ml PO Q6H PRN PRN Reason: Heartburn or Indigestion Last Admin: 11/19/18 19:31 Dose: 30 ml Albuterol/Ipratropium (Duoneb) 3 ml NEB [id number] PRN PRN Reason: SOB &/or Wheezing Allopurinol (Zyloprim) 150 mg PO HS [facility] Last Admin: 11/20/18 20:24 Dose: 150 mg Calcium Carbonate (Tums) 1,000 mg PO Q4H PRN PRN Reason: Heartburn or Indigestion Dextrose/Water (Dextrose 50%) 25 gm SLOW IVP PRN PRN PRN Reason: Hypoglycemia Famotidine (Pepcid) 20 mg PO BID [facility] Last Admin: 11/20/18 20:25 Dose: 20 mg Glucagon (Glucagon) 1 mg IM PRN PRN PRN Reason: Hypoglycemia Guaifenesin (Robitussin Sf) 200 mg PO Q4H PRN PRN Reason: Cough Hydralazine HCl (Apresoline) 10 mg SLOW IVP Q4H PRN PRN Reason: SBP Greater Than 180 Cefepime HCl 2 gm/ Sodium (Chloride) 100 mls @ 200 mls/hr IVPB 0400,1600 [facility] Last Admin: 11/20/18 16:03 Dose: 100 mls Dextrose/Water (D5w) 1,000 mls @ 0 mls/hr IV .Q0M PRN PRN Reason: Hypoglycemia Potassium Chloride/Dextrose/Sod Cl (D5 1/2 Ns W/20 Meq Kcl) 1,000 mls @ 75 mls/ hr IV .[id number] [facility] Last Admin: 11/20/18 16:52 Dose: 1,000 mls Vancomycin HCl 1 gm/ Device 200 mls @ 200 mls/hr IVPB Q24HR [facility] Insulin Human Regular (Humulin R) 0 units SC .MILD SLIDING SCALE PRN PRN Reason: Mild Correctional Scale Last Admin: 11/17/18 16:12 Dose: 2 unit Insulin Human Regular (Humulin R) 0 units SC .BEDTIME SLIDING SC PRN PRN Reason: Bedtime Correctional Scale Loperamide HCl (Imodium) 2 mg PO PRN PRN PRN Reason: Diarrhea/Loose Stools Last Admin: 11/18/18 12:11 Dose: 2 mg Metoprolol Tartrate (Lopressor) 25 mg PO BID [facility] Last Admin: 11/20/18 09:34 Dose: 25 mg Miscellaneous Medication (Pharmacy To Dose) 1 each IVPB PRN PRN PRN Reason: Pharmacy to dose Miscellaneous Medication (Phos-Nak) 1 pkt PO BID-[facility] Stop: 11/22/18 08:01 Last Admin: 11/20/18 16:02 Dose: 1 pkt Ondansetron HCl (Zofran) 4 mg IVP Q6H PRN PRN Reason: Nausea/Vomiting Last Admin: 11/19/18 09:44 Dose: 4 mg Phosphorus (K[facility]os Neutral) [facility] Stop: 11/22/18 08:01 Last Admin: 11/20/18 16:01 Dose: 250 mg Senna/Docusate Sodium (Senokot S) 2 tab PO BID PRN PRN Reason: Constipation Sertraline HCl (Zoloft) 100 mg PO DAILY [facility] Last Admin: 11/20/18 09:34 Dose: 100 mg Sodium Chloride (Flush - Normal Saline) 10 ml IVF PRN PRN PRN Reason: Saline Flush Tbo-Filgrastim (Granix) 480 mcg SC 1400 [facility] Last Admin: 11/20/18 14:14 Dose: 480 mcg
[2018-11-21] MEDS: Cefepime 2 GM in Sodium Chloride 0.9% 100 ML IVPB SCH ×2 (03:28→16:58)
[2018-11-21] MEDS: D5 1/2 NS w/20 mEq KCL 1,000 ML IV SCH ×3 (03:31→13:55)
[2018-11-21 05:49] LABS: Anion Gap 10 mmol/L (10-20); BUN (Urea Nitrogen) 16 mg/dL (8.4-25.7); Calc. Creatinine Clearance 61 mL/min (70-130); Calcium 8.1 mg/dL (7.8-10.44); Carbon Dioxide 23 mmol/L (23-31); Chloride 109 mmol/L (98-107); Estimated GFR-MDRD 53; Glucose 93 mg/dL (83-110); Magnesium 1.6 mg/dL (1.6-2.6); Potassium 3.7 mmol/L (3.5-5.1); Sodium 138 mmol/L (136-145)
[2018-11-21 05:52] LABS: Phosphorus 1.8 mg/dL (2.3-4.7)
[2018-11-21 06:18] LABS: Band 26 % (5-11); Hemoglobin 8.5 g/dL (14.0-18.0); Lymphocytes 26 % (21-51); MDiff Complete? YES; Mean Platelet Volume 9.3 fL (7.4-10.4); Monocytes 21 % (0-10); Neutrophil 26 % (42-75); Platelet Count 40 thou/uL (130-400); Platelet Morphology Comment Appears Decreased; RBC Distribution Width 12.6 % (11.5-14.5); Reactive Lymphocytes 1 % (0-10); Red Blood Cell (RBC) Count 2.58 mill/uL (4.70-6.10); White Blood Cell (WBC) Count 2.9 thou/uL (4.8-10.8)
--- NOTE | 2018-11-21 08:41 | PDOC.PN ---
- Subjective Encounter Start Date: 11/21/18 Encounter Start Time: 08:40 Subjective: Seen and examined -infiltrated IV -: Apthous ulcers on the lips likely due to chemo - Objective Resuscitation Status - Order Detail: 11/16/18 15:47 Resuscitation Status Routine Resuscitation Status: FULL: Full Resuscitation Vital Signs & Weight: Vital Signs (12 hours) Temp Pulse Resp BP BP Pulse Ox 11/21/18 07:15 98.2 F 75 15 144/65 H 93 L 11/21/18 03:18 98.0 F 73 14 132/71 93 L Weight Admit Weight 195 lb Weight 198 lb 12.8 oz I&O: 11/20/18 11/21/18 11/22/18 06:59 06:59 06:59 Intake Total 1670 2460 Output Total 100 740 Balance 1570 1720 Result Diagrams: 11/21/18 05:03 11/21/18 05:03 Additional Labs: Accuchecks 11/21/18 11/20/18 11/20/18 05:50 20:27 16:54 POC Glucose 92 122 H 124 H Phys Exam - Physical Examination Constitutional: NAD HEENT: PERRLA, moist MMs, sclera anicteric, TM's clear, oral pharynx no lesions Neck: no nodes, no JVD, supple, full ROM Respiratory: no wheezing, no rales, no rhonchi, clear to auscultation bilateral Cardiovascular: RRR, no significant murmur, no rub Gastrointestinal: soft, non-tender, no distention, positive bowel sounds Musculoskeletal: no edema, pulses present Dx/Plan (1) SOCORRO (acute kidney injury) Code(s): N17.9 - ACUTE KIDNEY FAILURE, UNSPECIFIED Status: Acute (2) COPD exacerbation Code(s): J44.1 - CHRONIC OBSTRUCTIVE PULMONARY DISEASE W (ACUTE) EXACERBATION Status: Acute (3) History of heart artery stent Code(s): Z95.5 - PRESENCE OF CORONARY ANGIOPLASTY IMPLANT AND GRAFT Status: Acute (4) Lung mass Code(s): R91.8 - OTHER NONSPECIFIC ABNORMAL FINDING OF LUNG FIELD Status: Acute (5) Recurrent left pleural effusion Code(s): J90 - PLEURAL EFFUSION, NOT ELSEWHERE CLASSIFIED Status: Acute Comment: s/p pleuryx cath (6) Small cell lung cancer, left lower lobe Code(s): C34.32 - MALIGNANT NEOPLASM OF LOWER LOBE, LEFT BRONCHUS OR LUNG Status: Acute (7) CAD (coronary artery disease) Code(s): I25.10 - ATHSCL HEART DISEASE OF [place] CORONARY ARTERY W/O ANG PCTRS Status: Chronic Qualifiers: Coronary Disease-Associated Artery/Lesion type: [place] artery [place] vs. 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
[2018-11-21] MEDS: K-Phos Neutral 250 MG TAB PO SCH ×3 (08:53→16:58)
[2018-11-21] MEDS: Famotidine 20 MG TAB PO SCH ×2 (08:53→20:08)
[2018-11-21] MEDS: Metoprolol Tartrate 25 MG TAB PO SCH ×2 (08:53→20:10)
[2018-11-21] MEDS ORDERED: Vancomycin HCl 1 GM in Premix Bag 1 BAG IVPB SCH (09:00)
[2018-11-21] MEDS: Lidocaine 2% Jelly 5 ML TUBE TOP PRN (10:08)
[2018-11-21] MEDS: Allopurinol 300 MG TAB PO SCH (20:09)
--- NOTE | 2018-11-21 20:18 | CT ---
CT BRAIN 11/21/18 HISTORY: Hallucinations. Small cell carcinoma. Noncontrast enhanced CT images of the brain obtained. Brain and bone windows obtained. Images demonstrate left maxillary sinus mucosal thickening. Moderate bilateral ethmoid sinus mucosal thickening seen. 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 Old area of stroke seen in the left parietal cortex. No evidence of acute intracranial masses, hemorrhages, or strokes seen. No evidence of midline shift seen. 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 POS: ANABELL
[2018-11-22] MEDS: Cefepime 2 GM in Sodium Chloride 0.9% 100 ML IVPB SCH (03:54)
[2018-11-22 04:54] LABS: Phosphorus 2.4 mg/dL (2.3-4.7)
[2018-11-22] MEDS: D5 1/2 NS w/20 mEq KCL 1,000 ML IV SCH (06:51)
--- NOTE | 2018-11-22 07:51 | PDOC.PN ---
- Subjective Encounter Start Date: 11/22/18 Encounter Start Time: 07:49 Subjective: Seen and examined feeling ok-alert oriented x3 - Objective Resuscitation Status - Order Detail: 11/16/18 15:47 Resuscitation Status Routine Resuscitation Status: FULL: Full Resuscitation Vital Signs & Weight: Vital Signs (12 hours) Temp Pulse Resp BP BP Pulse Ox 11/22/18 04:00 98.0 F 75 16 120/57 L 91 L 11/22/18 00:00 98.9 F 65 20 137/61 91 L 11/21/18 20:00 94 L Weight Admit Weight 195 lb Weight 198 lb 12.8 oz I&O: 11/21/18 11/22/18 11/23/18 06:59 06:59 06:59 Intake Total 2460 1030 Output Total 740 700 Balance 1720 330 Result Diagrams: 11/21/18 05:03 11/21/18 05:03 Additional Labs: Accuchecks 11/22/18 11/21/18 11/21/18 05:32 20:03 17:03 POC Glucose 95 121 H 89 11/21/18 11:12 POC Glucose 96 Phys Exam - Physical Examination Constitutional: NAD HEENT: PERRLA, moist MMs, sclera anicteric, TM's clear Neck: no nodes, no JVD, supple, full ROM Respiratory: no wheezing, no rales, no rhonchi Cardiovascular: RRR, no significant murmur, no rub Gastrointestinal: soft, non-tender, no distention, positive bowel sounds Musculoskeletal: no edema, pulses present Dx/Plan (1) SOCORRO (acute kidney injury) Code(s): N17.9 - ACUTE KIDNEY FAILURE, UNSPECIFIED Status: Acute (2) COPD exacerbation Code(s): J44.1 - CHRONIC OBSTRUCTIVE PULMONARY DISEASE W (ACUTE) EXACERBATION Status: Acute (3) History of heart artery stent Code(s): Z95.5 - PRESENCE OF CORONARY ANGIOPLASTY IMPLANT AND GRAFT Status: Acute (4) Lung mass Code(s): R91.8 - OTHER NONSPECIFIC ABNORMAL FINDING OF LUNG FIELD Status: Acute (5) Recurrent left pleural effusion Code(s): J90 - PLEURAL EFFUSION, NOT ELSEWHERE CLASSIFIED Status: Acute Comment: s/p pleuryx cath (6) Small cell lung cancer, left lower lobe Code(s): C34.32 - MALIGNANT NEOPLASM OF LOWER LOBE, LEFT BRONCHUS OR LUNG Status: Acute (7) CAD (coronary artery disease) Code(s): I25.10 - ATHSCL HEART DISEASE OF [place] CORONARY ARTERY W/O ANG PCTRS Status: Chronic Qualifiers: Coronary Disease-Associated Artery/Lesion type: [place] artery [place] vs. 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
[2018-11-22] MEDS: Lidocaine 2% Jelly 5 ML TUBE TOP PRN (08:19)
[2018-11-22] MEDS: Famotidine 20 MG TAB PO SCH (08:20)
[2018-11-22] MEDS: Metoprolol Tartrate 25 MG TAB PO SCH (08:23)
[2018-11-22 08:31] LABS: Hemoglobin 8.6 g/dL (14.0-18.0); Mean Corpuscular HGB CONC 33.2 g/dL (32.0-36.0); Mean Corpuscular Hemoglobin 31.6 pg (27.0-31.0); Mean Corpuscular Volume 95.3 fL (78.0-98.0); Mean Platelet Volume 8.8 fL (7.4-10.4); Platelet Count 48 thou/uL (130-400); RBC Distribution Width 12.4 % (11.5-14.5); Red Blood Cell (RBC) Count 2.71 mill/uL (4.70-6.10); White Blood Cell (WBC) Count 9.2 thou/uL (4.8-10.8)
[2018-11-22 09:14] LABS: Band 25 % (5-11); Differential Comment Blast-Like Cell(s); Lymphocytes 14 % (21-51); MDiff Complete? YES; Metamyelocyte 5 % (0-0); Monocytes 9 % (0-10); Myelocyte 7 % (0-0); Neutrophil 40 % (42-75); Platelet Morphology Comment Appears Decreased; RBC Morphology Normal; Reflex for Review?? NO
[2018-11-22] MEDS: K-Phos Neutral 250 MG TAB PO SCH (12:31)
[2018-11-22 14:08] VITALS: BP 141/67; TEMP 98.2
== END 2018-11-22 15:01 | disposition home or self-care (01) | DRG 871 ==
LOC: ERS 11:41 → ONC 17:49 → 2NO 11-18 21:56 → ONC 11-21 19:43
PROVIDERS: ADMIT Internal Medicine; ATTEND Internal Medicine
PROC: 30233N1 Transfusion of Nonautologous Red Blood Cells into Peripheral Vein, Percutaneous Approach (ICD-10-PCS; principal; 2018-11-16)
DX: A41.9 Sepsis, unspecified organism (principal); D61.810 Antineoplastic chemotherapy induced pancytopenia; C34.92 Malignant neoplasm of unspecified part of left bronchus or lung; N17.9 Acute kidney failure, unspecified; J90 Pleural effusion, not elsewhere classified; D70.9 Neutropenia, unspecified; D69.6 Thrombocytopenia, unspecified; N18.2 Chronic kidney disease, stage 2 (mild); E87.6 Hypokalemia; J44.9 Chronic obstructive pulmonary disease, unspecified; I25.10 Atherosclerotic heart disease of native coronary artery without angina pectoris; I12.9 Hypertensive chronic kidney disease with stage 1 through stage 4 chronic kidney disease, or unspecified chronic kidney disease; E11.22 Type 2 diabetes mellitus with diabetic chronic kidney disease; E11.51 Type 2 diabetes mellitus with diabetic peripheral angiopathy without gangrene; Z87.891 Personal history of nicotine dependence; M10.9 Gout, unspecified; N40.0 Benign prostatic hyperplasia without lower urinary tract symptoms; I71.4 Abdominal aortic aneurysm, without rupture; I48.91 Unspecified atrial fibrillation; T45.1X5A Adverse effect of antineoplastic and immunosuppressive drugs, initial encounter
CPT/HCPCS: 36415; 36416; 36430; 70450; 71045; 80048; 80053; 80202; 81003; 81015; 82248; 82945; 83605; 83615; 83630; 83735; 83986; 84100; 84484; 84550; 85007; 85025; 85027; 85060; 86850; 86900; 86901; 87040; 87045; 87046; 87070; 87081; 87086; 87205; 87324; 87449; 87633; 87804; 87899; 93005; 93010; 96365; J0692; J1447; J1642; J1815; J1825; J2405; J3370; J3475; J3480; J7050; P9016; P9035